=== PATIENT | female | born 1955 | race Caucasian/White ===

== ENCOUNTER 2025-06-01 12:09 | Inpatient (IN) | payer MEDICARE, MEDICAID ==
[~2025-06-01] VITALS: Ht 157.5 cm; Wt 48.9 kg
[~2025-06-01 12:09] MED LIST: ALBU18HF2 INH; FLUT1BLS4 INH; LEVO75TA7 PO
--- NOTE | 2025-06-01 12:38 | ELECTROCARDIOGRAPH REPORT ---
[facility] Test Date: 2025-06-01 Test Time: 12:16:41 Pat Name: CARMEL METZGER Department: EMERGENCY ROOM Room: ED 14 Gender: F General Technician: : 1955 Requested By: JOHNNIE SADLER Order Number: [id number] Reading MD: Dr. Johnnie Sadler Measurements Intervals [place] Rate: 98 P: 87 [place]: 124 QRS: 81 QRSD: 93 T: 6 QT: 353 QTc: 451 Interpretive Statements Sinus rhythm Borderline right axis deviation Borderline repolarization abnormality Electronically Signed On 06-01-2025 17:55:[address] Johnnie Sadler Please click the below link to view image of tracing.
--- NOTE | 2025-06-01 12:54 | RADIOLOGY REPORT ---
CHEST RADIOGRAPH Indication: CP Technique: Single frontal view of the chest was obtained Comparison: None FINDINGS: Lines and Tubes: None Lungs: No focal consolidation. Pleura: No effusion. No pneumothorax. Cardiomediastinal contours: Unremarkable Bones: No acute osseous abnormality. IMPRESSION: No acute cardiopulmonary disease.
[2025-06-01 13:48] LABS: MEAN PLATELET VOLUME 8.1 FL (7.4-10.4); RED CELL DISTRIBUTION WIDTH 14.3 % (11.5-14.5)
[2025-06-01 14:17] LABS: CREATININE 0.89 MG/DL (0.40-0.90); PRO BRAIN NATRIURETIC PEPTIDE 288 PG/ML (0-125); TOTAL CARBON DIOXIDE 29.9 MMOL/L (24-32); eCRCL 20 ML/MIN; eGFR 63 ML/MIN
--- NOTE | 2025-06-01 14:17 | Physician Documentation ---
History of Present Illness ~ Chief Complaint: Shortness of Breath Stated Complaint: CHEST AND ABD PAIN Time Seen by MD: 13:40 Mode of Arrival: POV HPI This 70-year-old female who has a complex abdominal surgery history presents today with increasing concerns of abdominal pain and chest wall pain. She was seen two days ago the [facility] where she had a CT performed along with laboratory values. The results ultimately indicated CT findings that were consistent with enteritis. The primarily concerned for this patient was a small-bowel obstruction which she was discovered to have three months ago. New line new line laboratory values were reassuring patient was mildly hyponatremic. The patient also had increased abdominal distention which is secondary to ascites. Does have a history of Crohn's. He was placed on ciprofloxacin primarily due to the suspected early development of infection. She presents today ongoing pain. Denies any dysfunction with her iliosostomy. Day of Onset: Jun 01, 2025 Medication Reconciliation Allergies: Coded Allergies: amoxicillin (Verified Allergy, Mild, Redness, 06/01/25) clavulanic acid (Verified Allergy, Mild, Redness, 06/01/25) latex (Verified Allergy, Unknown, HIVES, 06/01/25) Scheduled Fluticasone/Umeclidin/Vilanter (Trelegy Ellipta 100-62.5-25), 1 PUFFS INH DAILY, (Reported) Levothyroxine Sodium (Levothyroxine Sodium), 1 TAB PO DAILY, (Reported) Scheduled PRN Albuterol Sulfate (Ventolin Hfa), 2 PUFFS INH Q4HPRN PRN for wheezing Past Medical History Past Medical History: Bowel Obstruction, Hypothyroidism Past Surgical History: gastric bypass Patient History: Patient reports no known family medical history. Physical Exam Vital Signs: Temperature: 98.2, Source: Oral, Heart Rate: 99, Respiratory Rate: 17, BP: 126/57, Pulse Oximetry: 97, Weight: 22.270 Oxygen Flow Rate: 3.0 Progress Results/Orders Results/Orders Orders - HARSH RADFORD NP Hospitalist (06/01/25 ) Medications Received in ER Medications (Trade) Dose Ordered Sig/Abiel Route PRN Reason Start Time Stop Time Status Last Admin Dose Admin (morphine inj.) 1 mg Q4H PRN IV moderate pain (4-6) 06/01/25 16:10 06/01/25 16:37 1 MG Vital Signs 06/01/25 06/01/25 06/01/25 06/01/25 12:27 13:35 13:36 16:17 Temp 98.2 Pulse 99 90 Resp 17 20 B/P (MAP) 126/57 131/57 (81) Pulse Ox 99 97 98 O2 Delivery Nasal Cannula* O2 Flow Rate 3.0 2 2.0 FiO2 N/A 06/01/25 16:37 Resp 17 Laboratory Tests Test 06/01/25 13:33 06/01/25 14:19 White Blood Count 6.9 Red Blood Count 4.44 Hemoglobin 12.1 Hematocrit 37.0 Mean Corpuscular Volume 83.3 Mean Corpuscular Hemoglobin 27.2 Mean Corpuscular Hemoglobin Concent 32.7 L Red Cell Distribution Width 14.3 Platelet Count 288 Mean Platelet Volume 8.1 Neutrophils (%) (Auto) 74.8 Lymphocytes (%) (Auto) 17.3 L Monocytes (%) (Auto) 6.5 Eosinophils (%) (Auto) 0.9 Basophils (%) (Auto) 0.5 Neutrophils # (Auto) 5.1 Lymphocytes # (Auto) 1.2 Monocytes # (Auto) 0.4 Eosinophils # (Auto) 0.1 Basophils # (Auto) 0.0 CBC Comment Prothrombin Time 10.2 INR International Normalized Ratio 1.0 Activated Partial Thromboplast Time 27 Coagulation Comments Sodium Level 137 Potassium Level 3.9 Chloride Level 100 Carbon Dioxide Level 29.9 Anion Gap 7 L Blood Urea Nitrogen 13 Creatinine 0.89 Estimated GFR/1.73 m2 63 BUN/Creatinine Ratio 14.6 Glucose Level 83 Hemoglobin A1c 5.6 Calcium Level 8.5 Phosphorus Level 2.5 Magnesium Level 1.6 Total Bilirubin 0.5 Direct Bilirubin 0.1 Aspartate Amino Transf (AST/SGOT) 31 Alanine Aminotransferase (ALT/SGPT) 20 Alkaline Phosphatase 95 Troponin I High Sensitivity 5 5 Pro-B-Type Natriuretic Peptide 288 H Total Protein 7.3 Albumin 2.7 L Globulin 4.6 H Albumin/Globulin Ratio 0.6 L Thyroid Stimulating Hormone (TSH) 1.15 Chemistry Comments Troponin I High Sens Percent Delta 0 Troponin I Hi Sens Absolute Change 0 Medical Decision Making Findings 70-year-old female ultimately presents hemodynamically stable but has persistent abdominal pain and suspected costochondritis. She did not chart picker the ciprofloxacin that was prescribed to her because she was afraid of the side effects but states she needs something done. Reports pain in abdominal distention Differential Dx:Considerations: Include: anxiety, asthma, bronchitis, cardiogenic shock, CHF, COPD, dysrhythmia, hypertension, accelerated, hypertension, essential, hypertension, malignant, hyperventilation, hypon atremia, myocardial infarction, panic attack, pneumonia, pneumonitis, pneumothorax, PSVT, pulmonary embolism, respiratory distress, respiratory failure, sinusitis, upper resp. infection, other Departure Disposition: ADMITTED INPATIENT Impression: Primary Impression: Small bowel obstruction Additional Impression: Abdominal pain Condition: Stable Referrals: NO PRIMARY CARE PROVIDER (PCP) Education Educated: Patient Educated regarding: diagnosis Signature Scribe Signature: 5 Attestation: Scribed for Harsh Radford Automobile Mechanic Radiator by Harsh Cruz NP . 06/01/25 20:17 HARSH RADFORD NP Jun 01, 2025 14:17
[2025-06-01] MEDS ORDERED: mag hydrox/Alum hydrox/simeth 30ml oral suspension PO PRN (16:10)
[2025-06-01] MEDS ORDERED: potassium Cl 20 mEq SR tablet PO PRN (16:10)
[2025-06-01] MEDS ORDERED: magnesium hydroxide 30ml (MOM) UD suspension PO PRN (16:10)
[2025-06-01] MEDS ORDERED: potassium Cl 40MEQ/1/2NS 520ml 520 ML IV PRN (16:10)
[2025-06-01] MEDS ORDERED: magnesium sulf-water 2g/50mL 50 ML IV PRN (16:10)
[2025-06-01] MEDS ORDERED: magnesium sulf-water 4G/100mL 100 ML IV PRN (16:10)
[2025-06-01] MEDS: PERFLUTREN PROTEIN-A MICROSPHR (Optison) 0.22 MG/ML 3ML VIAL IV ONE (16:10)
[2025-06-01] MEDS ORDERED: magnesium Cl slow-release 64mg tablet PO PRN (16:10)
--- NOTE | 2025-06-01 16:37 | HISTORY AND PHYSICAL-Residence ---
History & Physical Providers to CC Resident Creating Document: JOSE BURR, RES ~ History of Present Illness Primary Medical Doctor: Everardo Hopson Reason for Admit\Complaint: Abdominal pain History of Present Illness A 70 years old female patient with past medical history of Crohn's disease status post total colectomy, hypothyroidism, COPD presented to ER with chief complaints of abdominal pain from past three months. She endorses that she has dull aching, cramping type of gradually increasing intermittent abdominal pain with severity of 7/10 present all over the abdomen aggravated with exertion. She denies nausea, vomiting, constipation, diarrhea, weight loss, fever, chills, shortness of breath, swelling of legs, dizziness, syncope, altered level of consciousness, arthralgias. She reports that she underwent CT scan with IV contrast at [facility] two days back. CT findings showed fluid-filled loops of nondilated small bowel which may be enteritis of infectious or inflammatory etiology, possible cirrhotic liver morphology and small volume ascites. She was advised to take ciprofloxacin by primary care provider Dr. Velazquez but she denies ciprofloxacin due to fear of infection may go worse. Allergies: Coded Allergies: amoxicillin (Verified Allergy, Mild, Redness, 06/01/25) clavulanic acid (Verified Allergy, Mild, Redness, 06/01/25) latex (Verified Allergy, Unknown, HIVES, 06/01/25) Home Medications Home Medications Active Ventolin Hfa (Albuterol Sulfate) 90 Mcg Hfa.aer.ad 2 Puffs INH Q4HPRN PRN 30 Days Reported Trelegy Ellipta 100-62.5-25 (Fluticasone/Umeclidin/Vilanter) 100-62.5 Blst.w.dev 1 Puffs INH DAILY Levothyroxine Sodium 75 Mcg Tablet 1 Tab PO DAILY Past Medical History Past Medical History Crohn's disease status post total colectomy, Hypothyroidism COPD Past Surgical History Surgical History Comment Total colectomy, ileostomy Family History Family History: Patient reports no known family medical history. Past Social History Social History Comment Ex-smoker, smoked pack of cigarettes for around 40 years, 40 pack years Drinks alcohol occasionally, 1 beer Denies any recreational drug use She is retired, lives with and granddaughter. ROS ROS Constitutional: No fever, chills, dizziness, weight gain or loss Eyes: No pain, erythema, discharge, blurring of vision ENT: No sore throat, epistaxis, tinnitus Cardiovascular:No chest pain, palpitations, syncope, lower extremity edema, paroxysmal nocturnal dyspnea Respiratory: No Shortness of breath and cough, No hemoptysis. Gastrointestinal: Reports Abdominal pain, no nausea and vomiting. Normal appetite. No constipation,diarrhea, hematemesis, melena or fresh blood Musculoskeletal:No chronmic edema. Integumentary: No change in skin, hair, nails. No swelling, bruising, abrasions Neurologic: No weakness,No headache, neck pain, numbness or tingling of the extremities, Psychiatric: No delusions, depression, loss of interest in normal activity or change in sleep pattern, hallucinations, suicidal ideations Endocrine: Reports fatigue, no weakness. polydipsia, polyuria, change in appetite, heat or cold intolerance, sweating, dry skin Hematological: No bleeding, petechiae, bruising Allergies: No asthma or urticaria Exam Vitals: Vital Signs Date Time Temp Pulse Resp B/P (MAP) Pulse Ox O2 Delivery O2 Flow Rate FiO2 06/01/25 16:17 90 20 131/57 (81) 98 2.0 06/01/25 13:35 Nasal Cannula* N/A 06/01/25 12:27 98.2 General: Awake , alert and oriented to time,place, person, cachectic, in mild distress HEENT: Atraumatic, normocephalic, PEERLA, anicteric sclera ; pink conjunctiva Neck: Trachea midline. Supple, normal range of motion, no JVD Cardiac: S1, S2 heard,Regular rate and rhythm, no murmurs heard. Chest and Respiratory: Equal breath sounds bilaterally, no tachypnea, wheezing and ronchi are present.Chest wall is symmetric and without deformity. Abdomen: Scar is present center of abdomen with Ileostomy bag in right lower quadrant, Abdomen symmetric, semi firm, mild abdominal distented, Diffuse moderate abdominal pain and tenderness, Garcia's sign negative. normal bowel sounds x4 quadrant, normoactive, no hepatosplenomegaly MSK: Range of motion of all extremities are normal. There is no joint pain or joint swelling or joint erythema. There is no muscle pain or tenderness or swelling. Extremities: warm, well-perfused, No cyanosis, clubbing or edema, 2+ pulses felt Neurological: Speech is clear, alert, and oriented x 4. No sensory or motor deficits. Cranial nerves II-XII intact. Skin: Warm and dry Psychiatry: Affect and mood are normal Diagnostic Data Last Recorded Lab Results: 06/01/25 1333 06/01/25 1333 Additional Plan Abdominal pain Possible small bowel obstruction versus enteritis Ordered CT of the abdomen and pelvis with overnight oral contrast CBC and LFTs are normal, vitals are stable Started on IV Protonix 40 mg daily Q 24 H IV Zofran 4 mg p.r.n. Pain management with IV morphine as needed Started on IV normal saline at the rate of 50 mL/hour Consider GI consult for EGD History of Crohn's disease Patient underwent total colectomy with ileostomy bag in right lower quadrant. Patient is not using any medication for Crohn's disease Hypothyroidism Follow up with TSH levels Continue on home medication levothyroxine 75 mg p.o. daily Obstructive sleep apnea Patient uses 2 L of oxygen@ nasal cannula sometimes outpatient management I spent a total of 17 minutes on reviewing various resuscitative measures/ ACP with the patient at the time of admission. The patient has decided on full code status DVT prophylaxis: SCDs GI prophylaxis: IV Protonix Diet: Regular diet Disposition: Patient is admitted for abdominal pain. We ordered CT scan with oral contrast. We will continue medical management. Jose Burr MD Internal Medicine resident, PGY 1 Date of Service: Jun 01, 2025 Billing Provider: RACHEL CROW DO Common Visit Codes: 72424-[id number] INP/OBS CARE (HIGH) Secondary Visit Codes: 83535-[id number] CARE PLAN 30 MINUTES JOSE BURR, RES Jun 01, 2025 16:37 RACHEL CROW DO Jun 01, 2025 19:03
[2025-06-01] MEDS ORDERED: pantoprazole 40MG/NS 100ML BAG 100 ML IV SCH (16:45)
[2025-06-01 17:10] LABS: APTT 27 SECONDS (22-32); INR 1.0 INR
[2025-06-01 17:24] LABS: PHOSPHORUS 2.5 MG/DL (2.3-4.5)
[2025-06-01 17:58] LABS: LEUKOCYTE ESTERASE ,URINE MODERATE (Neg); NITRITES, URINE NEGATIVE (Neg); OCCULT BLOOD,URINE SMALL (Neg)
[2025-06-01 18:02] LABS: UA COLLECTION TYPE VOIDED
[2025-06-01 18:04] LABS: MUCUS STRANDS FEW /LPF (Neg); SQUAMOUS EPITHELIAL CELL,UR MANY /LPF (FEW)
[2025-06-01] MEDS: normal saline 1000ml 1,000 ML IV SCH (18:55)
[2025-06-01 19:35] VITALS: BP 119/59; PULSE 98; RESP 18; TEMP 97.9; O2SAT 96
[2025-06-01] MEDS: K and/or MAG REPLACEMENT MC SCH (20:00)
[2025-06-01 20:30] VITALS: RESP 20; O2SAT 95
[2025-06-01] MEDS: diatr meglu/diatrizoate 30ml oral sol.-(3 dose) bottle PO SCH (21:43)
[2025-06-01] MEDS: docusate sod 100mg capsule PO SCH (21:45)
[2025-06-01 22:00] VITALS: BP 129/71; PULSE 94; RESP 20; TEMP 97.6; O2SAT 99
[2025-06-02 05:00] VITALS: BP 129/61; PULSE 98; RESP 20; TEMP 98.1; O2SAT 93
[2025-06-02 05:52] LABS: MEAN PLATELET VOLUME 8.4 FL (7.4-10.4); RED CELL DISTRIBUTION WIDTH 14.2 % (11.5-14.5)
[2025-06-02 06:20] LABS: CHOL/HDL RATIO 2.2 (0.00-4.99); CREATININE 0.86 MG/DL (0.40-0.90); LDL CHOLESTEROL 41 MG/DL (50-100); TOTAL CARBON DIOXIDE 25.8 MMOL/L (24-32); eCRCL 46 ML/MIN; eGFR 65 ML/MIN
[2025-06-02] MEDS: levoTHYROXINE 75mcg tablet PO SCH (07:55)
[2025-06-02 10:00] VITALS: BP 122/58; PULSE 103; RESP 20; TEMP 98.3; O2SAT 97
--- NOTE | 2025-06-02 10:58 | RADIOLOGY REPORT ---
CT CT ABDOMEN PELVIS W/ ORAL CONTRAST INDICATION: Abdominal pain with N/V, hx of total colectomy- Crohnes DX EXAM DATE: 06/02/2025 10:17 AM COMPARISON: CT CT ABDOMEN PELVIS W/ ORAL CONTRAST on DOS: 02/13/25, DI ABDOMEN,SINGLE VIEW(KUB) on DOS: 02/12/25, ROUTINE ABPEL WITH(ADULT) on DOS: 02/11/25 RADIATION DOSE: CTDIvol: 9 mGy, DLP: 393 mGy*cm PROCEDURE: Helical CT images were obtained of the abdomen and pelvis without IV contrast Sagittal and coronal reconstructions are provided. ORAL CONTRAST: Yes ADDITIONAL IMAGES / REFORMATS: None All CT scans at this medical facility are performed using dose modulation techniques as appropriate to a per formed exam including the following: Automated exposure control was utilized; adjustment of the MA an d/or KV according to patient size; and use of iterative reconstruction technique. FINDINGS: LUNG BASE: Mild emphysema and trace bilateral effusion. LIVER: Normal. GALLBLADDER AND BILIARY TREE: Janie clips. No intra- or extrahepatic biliary ductal dilation. PANCREAS: Normal. SPLEEN: Normal. BOWEL: Post surgical changes from total colectomy with similarly mildly dilated small bowel and a RLQ ileostomy. ADRENALS: Normal. KIDNEYS AND URETER: Small nonobstructive right kidney stone. BLADDER: Normal. REPRODUCTIVE ORGANS: Normal. LYMPH NODES:No lymphadenopathy. PERITONEUM: Mild ascites. VESSELS: Scattered atherosclerotic calcifications are noted. RETROPERITONEUM: Normal. ABDOMINAL WALL: Normal. BONES: Scattered osseous degenerative changes are noted. IMPRESSION: Post surgical changes from total colectomy with similarly mildly dilated small bowel and a RLQ ileost jacques. A partial mechanical bowel obstruction or ileus is a consideration. Mild ascites.
[2025-06-02] MEDS ORDERED: HYDROcodone/acetaminophen 10/325mg tab PO PRN (11:30)
[2025-06-02] MEDS: HYDROcodone/acetaminophen 5mg/325mg tablet PO PRN (11:35)
[2025-06-02] MEDS: ciprofloxacin lact 400MG/200ML 200 ML IV SCH (13:38)
[2025-06-02] MEDS: metroNIDAZOLE-Flagyl 500mg/NS 100 ML IV SCH (15:19)
--- NOTE | 2025-06-02 15:32 | CONSULTATION REPORT - RESIDENT ---
Consult Providers to CC Resident Creating Document: HOLA ELI RES History of Present Illness Reason for Admit\Complaint: Abdominal pain History of Present Illness A 70 years old female patient with past medical history of Crohn's disease status post total colectomy, hypothyroidism, COPD presented to ER with chief complaints of abdominal pain from past three months. She endorses that she has dull aching, cramping type of gradually increasing intermittent abdominal pain with severity of 7/10 present all over the abdomen aggravated with exertion. She states that the pain does not radiate. She denies constipation, diarrhea, hematochezia, melena, weight loss, fever, chills, shortness of breath, swelling of legs, dizziness, syncope, altered level of consciousness. She denied vomiting yesterday but she vomited today and NG tube was inserted. She reports that she underwent CT scan with IV contrast at [facility] two days back. CT findings showed fluid-filled loops of nondilated small bowel which may be enteritis of infectious or inflammatory etiology, possible cirrhotic liver morphology and small volume ascites. She was advised to take ciprofloxacin by primary care provider Dr. Velazquez but she denies ciprofloxacin due to fear of infection may go worse. Allergies: Coded Allergies: amoxicillin (Verified Allergy, Mild, Redness, 06/01/25) clavulanic acid (Verified Allergy, Mild, Redness, 06/01/25) latex (Verified Allergy, Unknown, HIVES, 06/01/25) Home Medications Home Medications Active Ventolin Hfa (Albuterol Sulfate) 90 Mcg Hfa.aer.ad 2 Puffs INH Q4HPRN PRN 30 Days Reported Trelegy Ellipta 100-62.5-25 (Fluticasone/Umeclidin/Vilanter) 100-62.5 Blst.w.dev 1 Puffs INH DAILY Levothyroxine Sodium 75 Mcg Tablet 1 Tab PO DAILY Past Medical History Past Medical History Crohn's disease status post total colectomy, Hypothyroidism COPD Past Surgical History Surgical History Comment Total colectomy, ileostomy Family History Family History: Patient reports no known family medical history. ROS ROS Constitutional: No fever, chills, dizziness, weight gain or loss Eyes: No pain, erythema, discharge, blurring of vision ENT: No sore throat, epistaxis, tinnitus Cardiovascular:No chest pain, palpitations, syncope, lower extremity edema, paroxysmal nocturnal dyspnea Respiratory: No Shortness of breath and cough, No hemoptysis. Gastrointestinal: Reports Abdominal pain, no nausea and vomiting. Normal appetite. No constipation,diarrhea, hematemesis, melena or fresh blood Musculoskeletal: No chronmic edema. Integumentary: No change in skin, hair, nails. No swelling, bruising, abrasions. Neurologic: No weakness,No headache, neck pain, numbness or tingling of the extremities, Psychiatric: No delusions, depression, loss of interest in normal activity or change in sleep pattern, hallucinations, suicidal ideations Endocrine: Reports fatigue, no weakness. polydipsia, polyuria, change in appetite, heat or cold intolerance, sweating, dry skin Hematological: No bleeding, petechiae, bruising Allergies: No asthma or urticaria Exam Vitals: Vital Signs Date Time Temp Pulse Resp B/P (MAP) Pulse Ox O2 Delivery O2 Flow Rate FiO2 06/02/25 13:50 16 06/02/25 10:00 98.3 103 122/58 (79) 97 06/02/25 08:00 Nasal Cannula 2.0 N/A General: Awake , alert and oriented to time,place, person, cachectic, in m oderate distress HEENT: Atraumatic, normocephalic, PEERLA, anicteric sclera ; pink conjunctiva Neck: Trachea midline. Supple, normal range of motion, no JVD Cardiac: S1, S2 heard,Regular rate and rhythm, no murmurs heard. Chest and Respiratory: Equal breath sounds bilaterally, no tachypnea, wheezing and ronchi are present.Chest wall is symmetric and without deformity. Abdomen: Scar is present center of abdomen with Ileostomy bag in right lower quadrant, Abdomen symmetric, firm, abdomen distended, Diffuse moderate abdominal pain and tenderness. Hypoactive bowel sounds. Garcia's sign negative. no hepatosplenomegaly MSK: Range of motion of all extremities are normal. There is no joint pain or joint swelling or joint erythema. There is no muscle pain or tenderness or swelling. Extremities: warm, well-perfused, No cyanosis, clubbing or edema Neurological: Speech is clear, alert, and oriented x 4. No sensory or motor deficits. Cranial nerves II-XII intact. Skin: Warm and dry Psychiatry: Affect and mood are normal Diagnostic Data Last Recorded Lab Results: 06/02/25 0437 06/02/25 0437 Diagnostic Data: Laboratory Tests Test 06/01/25 13:33 Prothrombin Time 10.2 SECONDS (9.0-12.0) INR International Normalized Ratio 1.0 INR Activated Partial Thromboplast Time 27 SECONDS (22-32) Coagulation Comments Additional Plan Abdominal pain Possible small bowel obstruction versus enteritis History of Crohn's disease Patient underwent total colectomy with ileostomy bag in right lower quadrant. Patient is not using any medication for Crohn's disease Abdomen CT-06/02/25 Post surgical changes from total colectomy with similarly mildly dilated small bowel and a RLQ ileostomy. A partial mechanical bowel obstruction or ileus is a consideration. Mild ascites. Plan: Pain management with IV morphine as needed Continue IV Protonix 40 mg daily Q 24 H IV Zofran 4 mg p.r.n. Continue IV normal saline at the rate of 50 mL/hour Hola Eli Internal Medicine Resident, PGY-1 Date of Service: Jun 02, 2025 Billing Provider: ROBBIN CLARKE MD,HOLA, RES Jun 02, 2025 15:32
[2025-06-02] MEDS ORDERED: iohexol 300mg/ml 100ml inj. ONE (17:16)
[2025-06-02] MEDS: diatr meglu/diatrizoate 30ml oral sol.-(3 dose) bottle PO SCH (17:46)
[2025-06-02 18:00] VITALS: BP 139/73; PULSE 101; RESP 18; TEMP 97.7; O2SAT 99
[2025-06-02] MEDS: ondansetron/PF 4mg/2ml inj IV PRN (18:48)
[2025-06-02] MEDS: LIDOcaine 2% Viscous 15ml cup MM ONE (19:39)
--- NOTE | 2025-06-02 19:40 | PROGRESS NOTE- Residence ---
Progress Note - Resident Providers to CC Resident Creating Document: JOSE BURR RES ~ Antibiotic Timeout Antibiotic Ordered?: Yes Subjective Patient was seen and examined at bedside. Patient complains of abdominal pain and distention, nausea and vomiting. Patient passed greenish yellow stools today. She denies constipation, diarrhea, chest pain, shortness of breath, palpitations, syncope. Objective Vital Signs Date Time Temp Pulse Resp B/P (MAP) Pulse Ox O2 Delivery O2 Flow Rate FiO2 06/02/25 13:50 16 06/02/25 10:00 98.3 103 122/58 (79) 97 06/02/25 08:00 Nasal Cannula 2.0 N/A Result Diagram: 06/02/2543606/02/25436 Awake , alert and oriented to time,place, person, cachectic, in mild distress HEENT: Atraumatic, normocephalic, PEERLA, anicteric sclera ; pink conjunctiva Neck: Trachea midline. Supple, normal range of motion, no JVD Cardiac: S1, S2 heard,Regular rate and rhythm, no murmurs heard. Chest and Respiratory: Equal breath sounds bilaterally, no tachypnea, wheezing and ronchi are present.Chest wall is symmetric and without deformity. Abdomen: Scar is present center of abdomen with Ileostomy bag in right lower quadrant, Abdomen is firm, moderate abdominal distented, Diffuse moderate abdominal tenderness and rigidity mainly in epigastric region,Hypoactive bowel sounds. Garcia's sign negative., no hepatosplenomegaly MSK: Range of motion of all extremities are normal. There is no joint pain or joint swelling or joint erythema. There is no muscle pain or tenderness or swelling. Extremities: warm, well-perfused, No cyanosis, clubbing or edema, 2+ pulses felt Neurological: Speech is clear, alert, and oriented x 4. No sensory or motor deficits. Cranial nerves II-XII intact. Skin: Warm and dry Psychiatry: Affect and mood are normal Coagulation Studies Laboratory Tests Test 06/01/25 13:33 Prothrombin Time 10.2 SECONDS (9.0-12.0) INR International Normalized Ratio 1.0 INR Activated Partial Thromboplast Time 27 SECONDS (22-32) Coagulation Comments Assessment Assessment A 70 years old female patient with past medical history of Crohn's disease status post total colectomy, hypothyroidism, COPD admitted for abdominal pain secondary to partial bowel obstruction vs enteritis. Plan Plan Abdominal pain Likely secondary to partial small bowel obstruction versus enteritis -CT of the abdomen showed partial mechanical bowel obstruction or ileus is a consideration and mild ascites. -CBC and LFTs are normal, vitals are stable -On IV Protonix 40 mg daily Q 24 H -IV Zofran 4 mg p.r.n. -Started on NPO -Pain management with IV Dilaudid 0.5 mg q.4h -On IV normal saline at the rate of 100 mL/hour -Strict input and output monitoring -Repeated CT abdomen as per Dr. Thomas's recommendation -Failed to pass of NG tube multiple times --Started on IV metronidazole 500 mg Q 8 H and ciprofloxacin 400 mg q.12h IV History of Crohn's disease Possible flare-up of Crohn's disease -Patient underwent total colectomy with ileostomy bag in right lower quadrant. -Patient is not using any medication for Crohn's disease -ESR and CRP are elevated -GI consulted for EGD and for medication. Appreciate recommendations. Urinary tract infection -Urine routines positive for esterase, WBC, bacteria -Ordered urine cultures -Started on IV ciprofloxacin 400 mg Q 12 H Hypothyroidism -TSh is in normal limits -Continue on home medication levothyroxine 75 mg p.o. daily Obstructive sleep apnea -Patient uses 2 L of oxygen@ nasal cannula sometimes -outpatient management Code status : full code DVT prophylaxis: SCDs GI prophylaxis: IV Protonix Diet: NPO Disposition: Patient is admitted for abdominal pain possibly secondary to partial small-bowel obstruction versus enteritis. Dr. Thomas was consulted and advised CT abdomen with IV contrast. NG tube placement pending. We will continue medical management. Jose Burr MD Internal Medicine resident, PGY 1 Date of Service: Jun 02, 2025 Billing Provider: MYAH MCKEON MD,JOSE DIEGO, RES Jun 02, 2025 19:40
--- NOTE | 2025-06-02 19:51 | RADIOLOGY REPORT ---
Exam: CT CT ABDOMEN PELVIS W/ IV CONTRAST History: pain Comparison Study: CT CT ABDOMEN PELVIS W/ ORAL CONTRAST on DOS: 06/02/25, CT CT ABDOMEN PELVIS W/ ORAL CONTRAST on DOS: 02/13/25, and 02/11/2025 DI ABDOMEN,SINGLE VIEW(KUB) on DOS: 02/12/25 TECHNIQUE: Multidetector CT of the abdomen and pelvis with IV contrast. Axial, coronal and sagittal m ultiplanar reformats were obtained from the axial data set by the technologist. Radiation Dose Information: CT Dose: CTDI volume is 9.34 mGy. Dose-length product is 442.02 mGy*cm FINDINGS: Small bilateral pleural effusions with bibasilar atelectasis. Partially visualized heart is unremark able. Lobulated contour of the liver. Otherwise, liver, spleen, pancreas and adrenal glands unremarkable. The gallbladder is not well-visualized. Punctate nonobstructing right renal calculus. Otherwise, Kidneys, ureters [id number]-oc-[id number] distend ed urinary bladder are unremarkable. Uterus is not well-visualized. Question hysterectomy. Small cys tic structures within the right posterior hemipelvis which represent ovarian cysts ; relatively uncha nged 02/11/2025 Significant esophageal wall thickening. Significant wall thickening of the distal stomach. The small- bowel loops are contrast filled and nondistended. Postsurgical changes of total colectomy with right lower abdominal quadrant ileostomy. There is contrast passage through the small bowel into the ileost jacques. Large volume ascites. No evidence of intraperitoneal free air. No evidence of aortic aneurysm or dissection. Mild atherosclerotic calcification of the aorta and monica ateral iliacs. Mildly prominent pelvic vasculatures. Retroperitoneal lymphadenopathy Mild pelvic and abdominal wall edema. Anterolisthesis of L5 on S1 with bilateral L5 pars defects. IMPRESSION: Large volume ascites ; relatively unchanged from prior imaging. Interval decrease in the distention of the small bowel loops with no significant distention noted on current image. Contrast passage into the ileostomy is noted. Significant wall thickening of the distal esophagus and distal stomach. Correlate for esophagitis a nd gastritis respectively. Retroperitoneal lymphadenopathy ; varicose veins prominence of the pelvic vasculatures. Small bilateral pleural effusions.
[2025-06-02 20:00] VITALS: RESP 18; O2SAT 95
--- NOTE | 2025-06-02 21:01 | CARDIOLOGY REPORT ---
APPROVED REPORT EXAM: Comprehensive 2D, Doppler, and color-flow Echocardiogram. Patient Location: 348 B Heart Rate: 80's bpm Rhythm: SINUS Indications CONGESTIVE HEART FAILURE PBNP [employer] Worker: NONE Previous echo: NONE 2D Dimensions RVDd 3.3 cm LVDd 4.0 cm LVOT Diameter 2.00 (1.8-2.4cm) M-Mode Dimensions Left Atrium(MM) 2.60 (2.5-4.0cm) Aortic Root 2.23 (2.2-3.7cm) Aortic Valve AoV Peak David. 131.0 cm/s AoV VTI 18.6 cm AO Peak GR. 6.9 mmHg AO Mean GR. 3 mmHg LVOT VTI 15.89 cm LVOT Peak David. 89.0 cm/s CHICO(VTI)/BSA 2.69 cm2/m2 CHICO (VTI) 2.69 cm2 Mitral Valve MV E Velocity 58.0 cm/s MV Peak Gr. 3 mmHg MV DECEL TIME 196 ms MV A Velocity 85.6 cm/s MV PHT 72 ms E/A Ratio 0.7 MVA (PHT) 3.06 cm2 MV VMax88.5 cm/s LEFT VENTRICLE Normal LV size and wall thickness. Overall systolic function is normal. Overall LVEF is about 60%. RIGHT VENTRICLE RV is mildly dilated with normal function. ATRIA The left atrium size is normal. AORTIC VALVE Trileaflet AV appears mildly sclerotic without stenosis. No insufficiency. MITRAL VALVE Mild MV annular calcification without stenosis. Mild regurgitation. TRICUSPID VALVE TV appears structurally normal with trace regurgitation. PULMONIC VALVE Pulmonic valve is not well visualized. GREAT VESSELS The aortic root is normal in size. PERICARDIUM Normal pericardium. No effusion. Other Information Study Quality: Adequate, but TDS plax/psax windows Conclusion Overall LVEF is about 60%. Normal LV size and wall thickness. Overall systolic function is normal. RV is mildly dilated with normal function. Trileaflet AV appears mildly sclerotic without stenosis. No insufficiency. Mild MV annular calcification without stenosis. Mild regurgitation. TV appears structurally normal with trace regurgitation. Normal pericardium. No effusion.
[2025-06-02 22:00] VITALS: BP 121/70; PULSE 72; RESP 16; TEMP 97.5; O2SAT 97
[2025-06-03] MEDS: HYDROmorphone inj. 0.5 MG/0.5 ML DISP.SYRIN IV PRN (04:36)
[2025-06-03 04:38] LABS: MEAN PLATELET VOLUME 7.8 FL (7.4-10.4); RED CELL DISTRIBUTION WIDTH 14.5 % (11.5-14.5)
[2025-06-03 04:51] LABS: CREATININE 0.70 MG/DL (0.40-0.90); TOTAL CARBON DIOXIDE 25.2 MMOL/L (24-32); eCRCL 57 ML/MIN; eGFR 82 ML/MIN
--- NOTE | 2025-06-03 05:13 | CONSULTATION ---
DATE OF CONSULTATION: 06/02/2025 DICTATING PHYSICIAN: Ab Dixon MD REASON FOR CONSULTATION: Abdominal pain. HISTORY OF PRESENT ILLNESS: The patient is 70 years old with a history of Crohn's disease status post subtotal colectomy with permanent ileostomy many years ago. She comes in because of increasing abdominal pain. The patient states she has been having these symptoms with abdominal pain and distention since January. She was diagnosed with an ileus earlier and hospitalized and subsequently was conservatively managed with NG suction and decompression. She continues to have similar problems. At the time she had an NG tube, she complained of retrosternal chest pain that subsided after removal of the NG tube. At this time, her main symptom is abdominal pain and distention. She has poor appetite. Upon arrival, she had a CT scan, which showed evidence of mildly dilated small bowel like previous report with right lower quadrant ileostomy, and an ileus or mechanical obstruction are the possibilities. She denies any heartburn or acid reflux. Her main complain is abdominal pain, which is generalized in the periumbilical area. Laboratory values were essentially unremarkable. PAST MEDICAL HISTORY: Positive for Crohn's disease status post total colectomy, hypothyroidism and COPD. FAMILY AND PERSONAL HISTORY: Noncontributory. REVIEW OF SYSTEMS: A 12-point review of system same as history of present illness. PHYSICAL EXAMINATION: GENERAL: She appears chronically ill, asthenic. VITAL SIGNS: Normal. HEENT: Head is atraumatic. NECK: Supple. HEART: Normal. LUNGS: Normal. ABDOMEN: Moderately distended, tympanitic. Bowel sounds are minimal. Ileostomy bag is empty. CENTRAL NERVOUS SYSTEM: Within normal limits. LABORATORY VALUES: Reviewed. CT scan was reviewed. IMPRESSION: History of Crohn's disease, status post total colectomy and she is admitted with what appears like ileus versus mechanical bowel obstruction. At this time, I would defer endoscopy. Apparently, the reason for GI consult was an EGD. I would think that performing an EGD and with air insufflation, the ileus could get worse. I would recommend conservative management, NG suction and if does not get better, would get a surgical consultation for treatment of possible mechanical bowel obstruction. I will follow the patient and if any other symptoms panned out, we will reconsider for an endoscopy. Ab Dixon MD TID: [id number] RECEIPT: [id number] [place]
[2025-06-03 06:00] VITALS: BP 113/58; PULSE 99; RESP 12; TEMP 98; O2SAT 96
[2025-06-03] MEDS: potassium Cl 20 mEq SR tablet PO PRN (09:46)
[2025-06-03 10:00] VITALS: BP 127/65; PULSE 96; RESP 19; TEMP 97.5; O2SAT 96
[2025-06-03] MEDS: potassium Cl 20mEq in D5-NS 1,000 ML IV SCH (10:30)
[2025-06-03] MEDS: Fluticasone/Umeclidin/Vilanter (Trelegy Ellipta 100-62.5-25) INHALER IH SCH (17:18)
[2025-06-03 18:00] VITALS: BP 110/51; PULSE 45; RESP 15; TEMP 97.8; O2SAT 100
[2025-06-03 20:00] VITALS: RESP 18; O2SAT 99
--- NOTE | 2025-06-03 20:13 | PROGRESS NOTE ---
Progress Note ID Providers to CC ~ Progress Note Progress Note: pt seen and examined-needs paracentesis BALAJI BANGURA MD Jun 03, 2025 20:13
--- NOTE | 2025-06-03 21:14 | PROGRESS NOTE- Residence ---
Progress Note - Resident Providers to CC Resident Creating Document: DANIELA RENNER, RES ~ Antibiotic Timeout Antibiotic Ordered?: Yes Subjective The patient was seen and examined at bedside today. He states that her abdominal pain and vomiting has gotten better with NG tube. Dr. Thomas repeated CT which showed lesser distention. Awaiting further recommendations. Objective Vital Signs Date Time Temp Pulse Resp B/P (MAP) Pulse Ox O2 Delivery O2 Flow Rate FiO2 06/03/25 10:00 97.5 96 19 127/65 (85) 96 Nasal Cannula 2.0 06/03/25 08:00 N/A Result Diagram: 06/03/2542106/03/25421 Elderly female, alert and oriented, not in acute distress Head: Normocephalic with an atraumatic Eyes: Pupils- 3mm, reacting to light, conjunctiva- anicteric Nose and throat: No polyps, septum- normal, no mucosal ulcers Neck: Supple, no lymphadenopathy, no carotid bruit Respiratory: No use of accessory muscles of respiration, Bilateral normal vesicular breath sounds heard. No wheeze, rhochi or creps Cardiac: S1-S2 heard, rhythm regular, no gallop/murmur Abdomen: Scar is present center of abdomen with Ileostomy bag in right lower quadrant, Abdomen symmetric, semi firm, mild abdominal distented, Diffuse moderate abdominal pain and tenderness, Garcia's sign negative. normal bowel sounds x4 quadrant, normoactive, no hepatosplenomegaly Extremities: no clubbing, no pedal edema, no deformities, peripheral pulses - 2+ Skin: warm and dry, no rash, no purpura Neuro: No focal deficit, gross cranial nerve exam - normal Coagulation Studies Laboratory Tests Test 06/01/25 13:33 Prothrombin Time 10.2 SECONDS (9.0-12.0) INR International Normalized Ratio 1.0 INR Activated Partial Thromboplast Time 27 SECONDS (22-32) Coagulation Comments Assessment Assessment A 70 years old female patient with past medical history of Crohn's disease status post total colectomy, hypothyroidism, COPD admitted for abdominal pain secondary to partial bowel obstruction vs enteritis. Plan Plan Abdominal pain Likely secondary to partial small bowel obstruction versus enteritis -CT of the abdomen showed partial mechanical bowel obstruction or ileus is a consideration and mild ascites. -repeat CT after NG placement showed lessened distention. -NPO -awaiting Dr. Thomas's recommendations -CBC and LFTs are normal, vitals are stable -On IV Protonix 40 mg daily Q 24 H -IV Zofran 4 mg p.r.n. -Pain management with IV Dilaudid 0.5 mg q.4h -On IV normal saline at the rate of 100 mL/hour -Strict input and output monitoring -Started on IV metronidazole 500 mg Q 8 H and ciprofloxacin 400 mg q.12h IV History of Crohn's disease S/p total colectomy Possible flare-up of Crohn's disease -Patient underwent total colectomy with ileostomy bag in right lower quadrant. -Patient is not using any medication for Crohn's disease -ESR and CRP are elevated -GI consulted for EGD and for medication. Appreciate recommendations. Urinary tract infection -Urine routines positive for esterase, WBC, bacteria -Ordered urine cultures -Started on IV ciprofloxacin 400 mg Q 12 H Hypothyroidism -TSh is in normal limits -Continue on home medication levothyroxine 75 mg p.o. daily Obstructive sleep apnea -Patient uses 2 L of oxygen@ nasal cannula sometimes -outpatient management Code status : full code DVT prophylaxis: SCDs GI prophylaxis: IV Protonix Diet: NPO Disposition: Continue NG. Awaiting Dr. Thomas's recommendations. Daniela Renner MD Internal Medicine Resident, PGY-2 Date of Service: Jun 03, 2025 Billing Provider: MYAH MCKEON MD,DANIELA AGOSTO, RES Jun 03, 2025 21:14
[2025-06-03 22:00] VITALS: BP 102/50; PULSE 100; RESP 12; TEMP 97.7; O2SAT 100
--- NOTE | 2025-06-03 23:12 | PROGRESS NOTE ---
DATE: 06/03/2025 DICTATING PHYSICIAN: Ab Dixon MD SUBJECTIVE: The patient is awake, alert. NG tube is in place. Somewhat uncomfortable because of NG tube. OBJECTIVE: VITAL SIGNS: Normal. NECK: Supple. The patient continues to have vomiting and the patient thinks that NG is not in place. Surgical evaluation pending. ABDOMEN: Mildly distended, nontender. No masses. Bowel sounds are sparse. IMPRESSION: Possible ileus. NG tube decompression in progress. We will await surgical evaluation to make further recommendations. Discussed with the patient's care nurse. Ab Dixon MD TID: [id number] RECEIPT: [id number] [place]
[2025-06-04] VITALS (10 sets, daily range): BP systolic 93–125; BP diastolic 42–60; PULSE 88–105; RESP 16–19; TEMP 97–98.8; O2SAT 96–100
[2025-06-04 04:55] LABS: MEAN PLATELET VOLUME 7.9 FL (7.4-10.4); RED CELL DISTRIBUTION WIDTH 14.1 % (11.5-14.5)
[2025-06-04 05:11] LABS: CREATININE 0.83 MG/DL (0.40-0.90); TOTAL CARBON DIOXIDE 26.9 MMOL/L (24-32); eCRCL 48 ML/MIN; eGFR 68 ML/MIN
--- NOTE | 2025-06-04 07:45 | CONSULTATION ---
DATE OF CONSULTATION: 06/03/2025 DICTATING PHYSICIAN: Bobby Thomas MD REASON FOR CONSULTATION: Abdominal discomfort. HISTORY OF PRESENT ILLNESS: The patient is a 70-year-old female with history of Crohn's disease. She was admitted with abdominal discomfort. CAT scan raised the question of a small-bowel obstruction. Surgical evaluation now requested. On further questioning, the patient complains of some mild abdominal discomfort. Pain is much improved from previous episodes. Pain has been present for approximately 3 months. She has a history of Crohn's and had a previous subtotal colectomy with permanent ileostomy. No history of blood per stoma. No complaints of significant weight loss. She has a history of malignancy she is aware of. The patient has had some nausea, vomiting. PAST MEDICAL HISTORY: Notable for Crohn's, hypothyroidism, COPD. PAST SURGICAL HISTORY: Abdominal colectomy with ileostomy. HOME MEDICATIONS: Include Ventolin, Trelegy, levothyroxine. ALLERGIES: AMPICILLIN, CLAVULANIC ACID, LATEX. SOCIAL HISTORY: No history of tobacco use. Does drink alcohol. She is retired. REVIEW OF SYSTEMS: See H and P. PHYSICAL EXAMINATION: GENERAL: Well-nourished female in no distress. VITAL SIGNS: Unremarkable. HEART: Regular rate and rhythm. LUNGS: Clear to auscultation. ABDOMEN: Somewhat distended. No signs of peritonitis. Has some mild tenderness. EXTREMITIES: Unremarkable. NEUROLOGIC: Nonfocal. LABORATORY DATA: Include WBC 6, hematocrit of 35. ____ left shift. Chemistries include CO2 of 25. LFTs essentially unremarkable. TSH 1.15. IMAGING STUDIES: Initial CAT scan revealed a fair amount of ascites. There were some bad loops in the small bowel. Stomach was essentially nondistended. presence of some small bowel, minimal aortic calcification. The liver is somewhat small. Repeat CT scan with IV contrast reveals no significant mesenteric stenosis, persistent ascites. Contrast is reversed in small bowel and is now in the ileostomy. Small bowel loop dilatation is improved. IMPRESSION: * Abdominal pain, question etiology. The patient has a large amount of acidic fluid. Denies history of significant liver disease, although she has some nodularity on her CT scan suggests underlying cirrhosis. No history of history per report and does not drink in excess. * History of hypothyroidism. * .. * History of Crohn's. * Chronic obstructive pulmonary disease. RECOMMENDATIONS: Paracentesis for diagnostic and therapeutic purposes. Bobby Thomas MD TID: [id number] RECEIPT: [id number] ELBA/CANDY/SHAWANDA
[2025-06-04] MEDS ORDERED: levoTHYROXINE 75mcg tablet PO SCH (08:00)
--- NOTE | 2025-06-04 10:22 | ELECTROCARDIOGRAPH REPORT ---
[facility] Test Date: 2025-06-04 Test Time: 10:20:36 Pat Name: CARMEL METZGER Department: [facility] 3N Patient ID: [facility]-[id number] Room: [place] [address] B Gender: F [employer] Ref[employer]: : 1955 Requested By: HE OWENS Order Number: [id number] Reading MD: Dr. MARIBEL Flores Measurements Intervals [place] Rate: 104 P: 46 [place]: 125 QRS: 31 QRSD: 90 T: -11 QT: 340 QTc: 448 Interpretive Statements Sinus tachycardia Atrial premature complexes Inferior infarct, age indeterminate Electronically Signed On 06-04-2025 16:54:[address] MARIBEL Flores Please click the below link to view image of tracing.
--- NOTE | 2025-06-04 11:18 | RADIOLOGY REPORT ---
Indication: CHECK PLACEMENT OF NG TUBE Technique: DI ABDOMEN,SINGLE VIEW(KUB)[id number] Comparison: None FINDINGS/IMPRESSION: The nasogastric tube projects towards stomach. Cardiac silhouette unremarkable. Bibasilar airspace opacities and small bilateral pleural effusions. Postsurgical changes of the mid to lower abdomen and left upper quadrant.
[2025-06-04] MEDS: metoclopramide 5 mg/ml inj IV PRN (11:27)
[2025-06-04 13:47] LABS: ALBUMIN,BODY FLUID 2.0 G/DL; GLUCOSE,BODY FLUID 130 MG/DL; LDH,BODY FLUID 544 U/L; TOTAL PROTEIN,BODY FLUID 4.7 G/DL
--- NOTE | 2025-06-04 13:47 | PROCEDURE NOTE- Residance ---
Procedure Note Providers to CC CC: PIPPA JIMENEZ MD ~ Description A time-out was performed. My hands were washed immediately prior to the procedure. I wore a surgical cap, mask with protective eyewear, sterile gown and sterile gloves throughout the procedure. The area was cleansed and draped in usual sterile fashion using chlorhexidine scrub. Anesthesia was achieved with 1% lidocaine. The rt side of the abdomen was prepped and draped in a sterile fashion using chlorhexidine scrub. 1% lidocaine was used to numb the skin, soft tissue and peritoneum. The paracentesis catheter was inserted and advanced with negative pressure until straw colored fluid was aspirated. Approximately 60 mL of ascitic fluid was collected and sent for laboratory analysis. The catheter was then connected to the vaccutainer and 2.4 liters of additional ascitic fluid were drained. The catheter was removed and no leaking was noted. A bandaid was placed over the puncture wound. The patient tolerated the procedure well without any immediate complications. Estimated blood loss was less than 5 ml. Date of Service: Jun 04, 2025 Billing Provider: PIPPA JIMENEZ MD, SIVA, RES Jun 04, 2025 13:47
[2025-06-04 13:58] LABS: BF RBC COUNT 1915 /CU MM; BF WBC COUNT 475 /CU MM (0-1000); BFAPPEAR HAZY; BFCOLOR YELLOW; BFSOURCE ASCITES FLD; BFVOLUME 11 ML; LYMPHOCYTES,BODY FLUID 54 %; NEUTROPHILS,BODY FLUID 14 %
[2025-06-04 13:59] LABS: MONOCYTES,BODY FLUID 32 %
[2025-06-04 14:01] LABS: BF UNCLASSIFIED CELLS MANY
--- NOTE | 2025-06-04 14:32 | CONSULTATION REPORT - RESIDENT ---
Consult Providers to CC Resident Creating Document: TOMMY SUNSHINE, RES CC: PIPPA JIMENEZ MD History of Present Illness Reason for Admit\Complaint: Abdominal pain History of Present Illness A 70-year-old female with PMH of Crohn's disease s/p total colectomy, hypothyroidism COPD presented to the ER in view of abdominal pain for the last three months. CT imaging with IV contrast was done at [facility] two days ago which revealed fluid filled loops of nondilated small bowel which was conservatively managed with NG tube. Patient's started to complain of retrosternal chest pain as soon as it NG tube was removed. Patient was found to have obstruction status post surgery. ICU was consulted in view of paracentesis per Dr. Thomas. Allergies: Coded Allergies: amoxicillin (Verified Allergy, Mild, Redness, 06/01/25) clavulanic acid (Verified Allergy, Mild, Redness, 06/01/25) latex (Verified Allergy, Unknown, HIVES, 06/01/25) Home Medications Home Medications Active Ventolin Hfa (Albuterol Sulfate) 90 Mcg Hfa.aer.ad 2 Puffs INH Q4HPRN PRN 30 Days Reported Trelegy Ellipta 100-62.5-25 (Fluticasone/Umeclidin/Vilanter) 100-62.5 Blst.w.dev 1 Puffs INH DAILY Levothyroxine Sodium 75 Mcg Tablet 1 Tab PO DAILY Past Medical History Past Medical History Crohn's stasis Hypothyroidism COPD Past Surgical History Surgical History Comment Colectomy Family History Family History: Patient reports no known family medical history. Exam Vitals: Vital Signs Date Time Temp Pulse Resp B/P (MAP) Pulse Ox O2 Delivery O2 Flow Rate FiO2 06/04/25 12:27 18 06/04/25 08:30 97 Nasal Cannula 2.0 N/A 06/04/25 06:00 97.9 98 102/60 (74) General: General: Alert, awake, oriented, not in acute distress HEENT: PERRLA, no icterus, pallor, lymphadenopathy, carotid bruit Respiratory system: Bilateral vesicular breath sounds heard, no adventitious breath sounds CVS: S1-S2 heard, no murmurs/rubs/gallop GI: Distended abdomen with ileostomy in the right side, Soft, nontender, no organomegaly, no guarding/rigidity, bowel sounds present Neuro: No focal neurological deficits present Extremities: No edema cyanosis clubbing/deformities Skin: Warm and dry Diagnostic Data Last Recorded Lab Results: 06/04/25 0433 06/04/25 0433 Diagnostic Data: Laboratory Tests Test 06/01/25 13:33 Prothrombin Time 10.2 SECONDS (9.0-12.0) INR International Normalized Ratio 1.0 INR Activated Partial Thromboplast Time 27 SECONDS (22-32) Coagulation Comments Additional Plan Ascites Paracentesis with 2400 mL of fluid taken out and sent for analysis Abdominal pain Likely 2/2 partial SBO versus enteritis History of Crohn's disease s/p total colectomy UTI Hypothyroidism EBONI Management per hospitalist Tommy Sunshine MD Internal Medicine, PGY 2 Date of Service: Jun 04, 2025 Billing Provider: PIPPA JIMENEZ MD, SIVA, RES Jun 04, 2025 14:32
--- NOTE | 2025-06-04 14:37 | PROGRESS NOTE ---
Progress Note ID Providers to CC ~ Progress Note Progress Note: pain improved post para/start BALAJI Samuels MD Jun 04, 2025 14:37
--- NOTE | 2025-06-04 15:05 | PROGRESS NOTE- Residence ---
Progress Note - Resident Providers to CC Resident Creating Document: HE BURR RES ~ Antibiotic Timeout Antibiotic Ordered?: Yes Subjective The patient was seen and examined at bedside today. Patient states that her abdominal pain improved after NG tube placement. She reports nausea. She denies vomiting, constipation, shortness of breath, dizziness. She denies any complaints or concerns at the moment. Objective Vital Signs Date Time Temp Pulse Resp B/P (MAP) Pulse Ox O2 Delivery O2 Flow Rate FiO2 06/04/25 12:46 105 16 104/42 (62) 97 Nasal Cannula 2.0 06/04/25 08:30 N/A 06/04/25 06:00 97.9 Result Diagram: 06/04/2543206/04/25 043 Awake , alert and oriented to time,place, person, cachectic, in mild distress HEENT: Atraumatic, normocephalic, PEERLA, anicteric sclera ; pink conjunctiva Neck: Trachea midline. Supple, normal range of motion, no JVD Cardiac: S1, S2 heard,Regular rate and rhythm, no murmurs heard. Chest and Respiratory: Equal breath sounds bilaterally, no tachypnea, wheezing and ronchi are present.Chest wall is symmetric and without deformity. Abdomen: Scar is present center of abdomen with Ileostomy bag in right lower quadrant, Abdomen is soft, moderate abdominal distented, no tenderness, No guarding or rigidity,Hypoactive bowel sounds. Garcia's sign negative., no hepatosplenomegaly MSK: Range of motion of all extremities are normal. There is no joint pain or joint swelling or joint erythema. There is no muscle pain or tenderness or swelling. Extremities: warm, well-perfused, No cyanosis, clubbing or edema, 2+ pulses felt Neurological: Speech is clear, alert, and oriented x 4. No sensory or motor deficits. Cranial nerves II-XII intact. Skin: Warm and dry Psychiatry: Affect and mood are normal Coagulation Studies Laboratory Tests Test 06/01/25 13:33 Prothrombin Time 10.2 SECONDS (9.0-12.0) INR International Normalized Ratio 1.0 INR Activated Partial Thromboplast Time 27 SECONDS (22-32) Coagulation Comments Assessment Assessment A 70 years old female patient with past medical history of Crohn's disease status post total colectomy, hypothyroidism, COPD admitted for abdominal pain secondary to partial bowel obstruction vs enteritis. CT showed large volume ascites. Planned for paracentesis as per Dr. Thomas's recommendation. Plan Plan Abdominal pain Likely secondary to partial small bowel obstruction versus enteritis -CT of the abdomen showed partial mechanical bowel obstruction or ileus is a consideration and mild ascites. -Repeated CT with IV contrast after NG placement showed the large volume ascites. -planned for paracentesis as per Dr. Thomas's recommendations -NPO -CBC and LFTs are normal, vitals are stable -On IV Protonix 40 mg daily Q 24 H -IV Zofran 4 mg p.r.n. -Pain management with IV Dilaudid 0.5 mg q.4h -On IV normal saline at the rate of 100 mL/hour -Strict input and output monitoring -Started on IV metronidazole 500 mg Q 8 H and ciprofloxacin 400 mg q.12h IV Possible ileus -CT of the abdomen showed partial mechanical bowel obstruction or ileus is a consideration -NPO -NG tube decompression as per Dr. Dixon recommendation Urinary tract infection -Urine routines positive for esterase, WBC, bacteria -follow up with urine cultures -On IV ciprofloxacin 400 mg Q 12 H History of Crohn's disease S/p total colectomy Possible flare-up of Crohn's disease -Patient underwent total colectomy with ileostomy bag in right lower quadrant. -Patient is not using any medication for Crohn's disease -counseled about medication compliance -Advised to follow-up with outpatient management Hypothyroidism -TSh is in normal limits -Continue on home medication levothyroxine 75 mg p.o. daily Obstructive sleep apnea -Patient uses 2 L of oxygen@ nasal cannula sometimes -outpatient management Code status : full code DVT prophylaxis: SCDs GI prophylaxis: IV Protonix Diet: NPO Disposition: Continue NG decompression. Plan for paracentesis as per Dr. Thomas's recommendation Harry Burr MD Internal Medicine Resident, PGY-1 Date of Service: Jun 04, 2025 Billing Provider: MYAH MCKEON MD,HE DIEGO, RES Jun 04, 2025 15:05
--- NOTE | 2025-06-04 15:10 | RADIOLOGY REPORT ---
PROCEDURE: ULTRASOUND GUIDED PARACENTESIS HISTORY: 70 Female requiring paracentesis. TECHNIQUE: The risks and benefits of the procedure including but not limited to bleeding, infection and injury t o abdominal organs were explained to the patient and written informed consent was obtained. Optimal site for puncture was determined using ultrasound and the area sterilized and draped. Using a 5 [employer] catheter, paracentesis was performed in the left lower abdomen. Approximately 2.4 l iters of straw colored fluid was removed. The patient tolerated the procedure well. There were no im mediate complications. IMPRESSION: Ultrasound-guided paracentesis with no immediate complications. Procedure by Dr. Brown
[2025-06-04] MEDS: metoclopramide 5 mg/ml inj IV SCH (20:28)
--- NOTE | 2025-06-04 21:08 | PROGRESS NOTE ---
DATE: 06/04/2025 DICTATING PHYSICIAN: Ab Dixon MD SUBJECTIVE: The patient is awake and alert. Reports abdominal pain to be reduced; however, uncomfortable to the NG tube. NG tube returns intermittently high. Apparently, after 30 minutes of clamping for medication administration, she had NG return of 100-150 mL of bilious fluid. However, radiographically bowel obstructions have been ruled out as apparently the contrast was seen in the ileostomy bag. Incidentally, she also has ascites and paracentesis if scheduled by Dr. Brown today. The CT scan also showed esophageal and gastric wall thickening that needs to be further evaluated with endoscopy. PHYSICAL EXAMINATION: GENERAL: On physical exam, she is awake, alert, friendly, somewhat uncomfortable because of NG tube. VITAL SIGNS: Normal. NECK: Supple. HEART AND LUNG: Normal. ABDOMEN: Less distended, less tympanitic. Bowel sounds are present. IMPRESSION: The patient with history of Crohn's, colitis, status post total colectomy many years ago, came in with what appear like a bowel obstruction versus ileus. Conservative management seems to have resolve the ileus as she has been passing the contrast through the ileostomy; however, there is high output with NG tube, the reason for which are unclear. We will follow up on the peritoneal fluid analysis especially we will need to rule out malignant ascites in view of the fact that she does not have any history of liver disease versus obvious liver disease. The radiographic finding of esophageal and gastric thickening have to be also followed up with an endoscopy. We will plan on endoscopy tomorrow if it is okayed by the following surgeon for temporarily to remove the NG tube and evaluate the stomach. We will await surgical follow up regarding that and schedule endoscopy tomorrow. We will discuss with the hospitalist team as well. Ab Dixon MD TID: [id number] RECEIPT: [id number] MERLE/ABIGAIL/SHAWANDA
[2025-06-05] VITALS (15 sets, daily range): BP systolic 93–132; BP diastolic 46–73; PULSE 57–109; RESP 15–24; TEMP 97.5–98.1; O2SAT 92–98
[2025-06-05] MEDS: Chloraseptic (Phenol) Spray 177ml MM PRN (03:15)
[2025-06-05 04:54] LABS: MEAN PLATELET VOLUME 7.8 FL (7.4-10.4); RED CELL DISTRIBUTION WIDTH 14.6 % (11.5-14.5)
[2025-06-05 05:17] LABS: CREATININE 0.89 MG/DL (0.40-0.90); TOTAL CARBON DIOXIDE 27.3 MMOL/L (24-32); eCRCL 45 ML/MIN; eGFR 63 ML/MIN
[2025-06-05] MEDS: normal saline 1000ml 1,000 ML IV SCH (07:50)
[2025-06-05] MEDS ORDERED: propofol inj 20 ML IV ONE (10:59)
--- NOTE | 2025-06-05 19:35 | PROGRESS NOTE- Residence ---
Progress Note - Resident Providers to CC Resident Creating Document: HOLA ELI RES ~ Antibiotic Timeout Antibiotic Ordered?: Yes Subjective The patient was seen and examined at bedside today. Patient states that her abdominal pain improved. She looks mildly distressed. Objective Vital Signs Date Time Temp Pulse Resp B/P (MAP) Pulse Ox O2 Delivery O2 Flow Rate FiO2 06/05/25 12:20 82 15 110/60 (77) 98 Nasal Cannula 3.0 06/05/25 11:48 97.7 06/05/25 08:00 N/A General: Awake , alert and oriented to time,place, person, cachectic, in mild distress HEENT: Atraumatic, normocephalic, PEERLA, anicteric sclera ; pink conjunctiva Neck: Trachea midline. Supple, normal range of motion, no JVD Cardiac: S1, S2 heard,Regular rate and rhythm, no murmurs heard. Chest and Respiratory: Equal breath sounds bilaterally, no tachypnea, wheezing and ronchi are present.Chest wall is symmetric and without deformity. Abdomen: Scar is present center of abdomen with Ileostomy bag in right lower quadrant, Abdomen is soft, moderate abdominal distented, no tenderness, No guarding or rigidity,Hypoactive bowel sounds. Garcia's sign negative., no hepatosplenomegaly MSK: Range of motion of all extremities are normal. There is no joint pain or joint swelling or joint erythema. There is no muscle pain or tenderness or swelling. Extremities: warm, well-perfused, No cyanosis, clubbing or edema, 2+ pulses felt Neurological: Speech is clear, alert, and oriented x 4. No sensory or motor deficits. Cranial nerves II-XII intact. Skin: Warm and dry Psychiatry: Affect and mood are normal Result Diagram: 06/05/25 0428 06/05/25 0428 Coagulation Studies Laboratory Tests Test 06/01/25 13:33 Prothrombin Time 10.2 SECONDS (9.0-12.0) INR International Normalized Ratio 1.0 INR Activated Partial Thromboplast Time 27 SECONDS (22-32) Coagulation Comments Assessment Assessment Abdominal pain 2/2 Acute gastritis, most probably ileus which seems to be resolved CT of the abdomen showed partial mechanical bowel obstruction or ileus is a consideration and mild ascites. Conservative management seems to have resolved the ileus as she has been passing the contrast through the ileostomy. EGD- -LA Grade B reflux esophagitis with no bleeding. -Small hiatal hernia. -Congested, erythematous, eroded and petechial mucosa in the gastric body and antrum. Biopsied. -Normal duodenal bulb and second portion of the duodenum. She does not have any liver disease and her liver enzymes are normal. Paracentesis was done and 2.4 litres of straw coloured fluid was removed. We will await Peritoneal fluid analysis. Plan Plan Continue management as per primary team We will await peritoneal fluid analysis. Hola Eli Internal Medicine Resident, PGY-1 Date of Service: Jun 05, 2025 Billing Provider: ROBBIN CLARKE MD,HOLA, RES Jun 05, 2025 19:35
--- NOTE | 2025-06-05 20:43 | PROGRESS NOTE ---
Progress Note ID Providers to CC ~ Progress Note Progress Note: min pain/start clears BALAJI BANGURA MD Jun 05, 2025 20:43
--- NOTE | 2025-06-05 21:02 | PROGRESS NOTE- Residence ---
Progress Note - Resident Providers to CC Resident Creating Document: HE BURR, GABRIELLA ~ Antibiotic Timeout Antibiotic Ordered?: Yes Subjective The patient was seen and examined at bedside today. Patient states that her abdominal pain improved. She looks mildly distressed. Objective Vital Signs Date Time Temp Pulse Resp B/P (MAP) Pulse Ox O2 Delivery O2 Flow Rate FiO2 06/05/25 20:22 104 16 94 Nasal Cannula* 1 24 06/05/25 12:20 110/60 (77) 06/05/25 11:48 97.7 Result Diagram: 06/05/2542706/05/25427 Awake , alert and oriented to time,place, person, cachectic, in mild distress HEENT: Atraumatic, normocephalic, PEERLA, anicteric sclera ; pink conjunctiva Neck: Trachea midline. Supple, normal range of motion, no JVD Cardiac: S1, S2 heard,Regular rate and rhythm, no murmurs heard. Chest and Respiratory: Equal breath sounds bilaterally, no tachypnea, wheezing and ronchi are present.Chest wall is symmetric and without deformity. Abdomen: Scar is present center of abdomen with Ileostomy bag in right lower quadrant, Abdomen is soft, moderate abdominal distented, no tenderness, No guarding or rigidity,Hypoactive bowel sounds. Garcia's sign negative., no hepatosplenomegaly MSK: Range of motion of all extremities are normal. There is no joint pain or joint swelling or joint erythema. There is no muscle pain or tenderness or swelling. Extremities: warm, well-perfused, No cyanosis, clubbing or edema, 2+ pulses felt Neurological: Speech is clear, alert, and oriented x 4. No sensory or motor deficits. Cranial nerves II-XII intact. Skin: Warm and dry Psychiatry: Affect and mood are normal Coagulation Studies Laboratory Tests Test 06/01/25 13:33 Prothrombin Time 10.2 SECONDS (9.0-12.0) INR International Normalized Ratio 1.0 INR Activated Partial Thromboplast Time 27 SECONDS (22-32) Coagulation Comments Assessment Assessment A 70 year old female was admitted for abdominal pain secondary to possible ileus. Plan Plan Abdominal pain most probably secondary to ileus, resolved -CT of the abdomen showed partial mechanical bowel obstruction or ileus is a consideration and mild ascites. Conservative management seems to have resolved the ileus as she has been passing the contrast through the ileostomy as per Dr. Porter -Repeated CT with IV contrast after NG placement showed the large volume ascites. - ascitic fluid analysis showed high-protein count and SAAG - 0.1 -NG TUBE was removed and started on clear liquid diet as per Dr. Thomas's recommendations -On IV Protonix 40 mg daily Q 24 H -IV metoclopramide 5 mg p.r.n. -Pain management with IV Dilaudid 0.5 mg q.4h -On IV metronidazole 500 mg Q 8 H -On IV ciprofloxacin 400 mg q.12h Acute gastritis -EGD showed LA Grade B reflux esophagitis with no bleeding.Small hiatal hernia. Congested, erythematous, eroded and petechial mucosa in the gastric body and antrum. Biopsied. -On IV Protonix 40 mg daily Q 24 H -Management as per Dr. Porter recommended Urinary tract infection -Urine routines positive for esterase, WBC, bacteria -follow up with urine cultures -On IV ciprofloxacin 400 mg Q 12 H History of Crohn's disease S/p total colectomy Possible flare-up of Crohn's disease -Patient underwent total colectomy with ileostomy bag in right lower quadrant. -Patient is not using any medication for Crohn's disease -counseled about medication compliance -Advised to follow-up with outpatient management Hypothyroidism -TSh is in normal limits -Continue on home medication levothyroxine 75 mg p.o. daily Obstructive sleep apnea -Patient uses 2 L of oxygen@ nasal cannula sometimes -outpatient management Code status : full code DVT prophylaxis: SCDs GI prophylaxis: IV Protonix Diet: NPO Disposition: Patient was admitted with abdominal pain secondary to possible ileus. NG tube was removed and started on clear liquid diet. We will continue medical management. Harry Burr MD Internal Medicine Resident, PGY-1 Date of Service: Jun 05, 2025 Billing Provider: MYAH MCKEON MD,HE DIEGO, RES Jun 05, 2025 21:02
[2025-06-06 04:47] LABS: MEAN PLATELET VOLUME 7.8 FL (7.4-10.4); RED CELL DISTRIBUTION WIDTH 14.7 % (11.5-14.5)
[2025-06-06 05:01] LABS: CREATININE 0.84 MG/DL (0.40-0.90); TOTAL CARBON DIOXIDE 26.3 MMOL/L (24-32); eCRCL 47 ML/MIN; eGFR 67 ML/MIN
[2025-06-06 06:00] VITALS: BP 134/58; PULSE 98; RESP 24; TEMP 98; O2SAT 95
[2025-06-06 08:24] VITALS: PULSE 85; RESP 16; O2SAT 98
[2025-06-06 10:00] VITALS: BP 115/60; PULSE 97; RESP 20; TEMP 98.2; O2SAT 97
[2025-06-06] MEDS: Fluticasone/Umeclidin/Vilanter (Trelegy Ellipta 100-62.5-25) INHALER IH SCH (15:02)
--- NOTE | 2025-06-06 15:38 | PROGRESS NOTE ---
Progress Note ID Providers to CC ~ Progress Note Progress Note: COMPLAINS OF PAIN/VSS/ABD-MILD DISTENTION/LABS NOTED A/P 1. RECURRENT PAIN-? RECURRENT ASCITES/REPEAT CT BALAJI BANGURA MD Jun 06, 2025 15:38
--- NOTE | 2025-06-06 15:57 | PATHOLOGY REPORT ---
[facility] [address] [place] [address] NON-EDUCATIONAL ADVISER CYTOLOGY REPORT CaseNumber: [id number] Surgeon:Alpesh Goldsmith M.D. CLINICAL INFORMATION CLINICAL INFORMATION: Determine malignancy. 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 The express ion of NOHEMI-3 and E-cadherin, in particular, favors a primary ovarian serous adenocarcinoma. This case has been reviewed by Dr. Gomez, who agrees with this diagnosis. MICROSCOPIC DESCRIPTION MICROSCOPIC DESCRIPTION: Reviewed is a Diff-Quik smear, and a cytospin slide, and a single H&E-staine d slide. The specimen consists of some peripheral blood along with proteinaceous and some fibrinous- type material. There are numerous clusters of atypical cells with moderately enlarged and pleomorphi c nuclei. The nuclear chromatin is finely granular. The nucleoli are mildly to moderately enlarged and are occasionally multiple. The surrounding cytoplasm is present in moderate to fairly abundant a celine and is often vacuolated. Immunohistochemistry is as follows: AE1/3 .... Positive CK7 .... Positive CK20 .... Negative MOC-31 .... Positive TTF-1 .... Negative CDX-2 .... Negative SATB2 .... Negative PAX-8 .... Negative GCDFP-15 .... Negative Mammaglobin .... Negative NOHEMI-3 .... Scattered positivity E-cadherin .... Positive CD68 .... Negative; macrophages positive Calretinin .... Negative p40 .... Negative ER .... Positive (60%) GROSS DESCRIPTION GROSS DESCRIPTION: Received labeled with the patient's name, number, and "peritoneal fluid" is 7.5 mL of unfixed clear, yellow, watery fluid. Specific gravity is 1.030. One smear for Diff-Quik, one june ble cytospin slide, and one cell block are prepared. The cell block is submitted as A1. The time at [facility] the specimen was removed was 1240. The time at which the specimen was placed in formalin was 151 0. ([facility]) Electronically signed by: Anshu Quevedo M.D. 06/06/2025 3:22:00 PM
--- NOTE | 2025-06-06 16:13 | PROGRESS NOTE- Residence ---
Progress Note - Resident Providers to CC Resident Creating Document: DANIELA RENNER, RES ~ Antibiotic Timeout Antibiotic Ordered?: Yes Subjective The patient was seen and examined at bedside today. Her NG tube was removed yesterday as her symptoms got better. Endoscopy was done yesterday by Dr. Warner. She again got her symptoms of bloating and distension back today. Objective Vital Signs Date Time Temp Pulse Resp B/P (MAP) Pulse Ox O2 Delivery O2 Flow Rate FiO2 06/06/25 10:00 98.2 97 20 115/60 (78) 97 Nasal Cannula 1.0 06/06/25 08:24 28 Result Diagram: 06/06/2540906/06/25409 Elderly female, alert and oriented, not in acute distress Head: Normocephalic with an atraumatic Eyes: Pupils- 3mm, reacting to light, conjunctiva- anicteric Nose and throat: No polyps, septum- normal, no mucosal ulcers Neck: Supple, no lymphadenopathy, no carotid bruit Respiratory: No use of accessory muscles of respiration, Bilateral normal vesicular breath sounds heard. No wheeze, rhochi or creps Cardiac: S1-S2 heard, rhythm regular, no gallop/murmur Abdomen: Scar is present center of abdomen with Ileostomy bag in right lower quadrant, Abdomen symmetric, abdomen is distented, Diffuse moderate abdominal tenderness, Garcia's sign negative. normal bowel sounds x4 quadrant, normoactive, no hepatosplenomegaly Extremities: no clubbing, no pedal edema, no deformities, peripheral pulses - 2+ Skin: warm and dry, no rash, no purpura Neuro: No focal deficit, gross cranial nerve exam - normal Coagulation Studies Laboratory Tests Test 06/01/25 13:33 Prothrombin Time 10.2 SECONDS (9.0-12.0) INR International Normalized Ratio 1.0 INR Activated Partial Thromboplast Time 27 SECONDS (22-32) Coagulation Comments Assessment Assessment A 70 year old female was admitted for abdominal pain secondary to possible ileus. Plan Plan Abdominal pain Partial mechanical small bowel obstruction Ileus Possible underlying malignancy -patient underwent upper GI endoscopy which showed LA grade B reflux esophagitis with no bleeding. Small hiatal hernia. Congested, erythematous, eroded petechial mucosa in the gastric body and antrum. -NG tube removed yesterday. Patient's abdomen has been distended and bloated again. -Dr. March is repeating CT abdomen and pelvis today. Possible NG placement again. -CT of the abdomen showed partial mechanical bowel obstruction or ileus is a consideration and mild ascites. -ascitic fluid analysis showed high-protein count and SAAG - 0.1. -On IV Protonix 40 mg daily Q 24 H -IV metoclopramide 5 mg p.r.n. -Pain management with IV Dilaudid 0.5 mg q.4h -On IV metronidazole 500 mg Q 8 H -On IV ciprofloxacin 400 mg q.12h Acute esophagitis and gastritis -EGD showed LA Grade B reflux esophagitis with no bleeding.Small hiatal hernia. Congested, erythematous, eroded and petechial mucosa in the gastric body and antrum. Biopsied. -On IV Protonix 40 mg daily Q 24 H -Management as per Dr. Porter Urinary tract infection -Urine routines positive for esterase, WBC, bacteria -follow up with urine cultures -On IV ciprofloxacin 400 mg Q 12 H History of Crohn's disease S/p total colectomy Possible flare-up of Crohn's disease -Patient underwent total colectomy with ileostomy bag in right lower quadrant. -Patient is not using any medication for Crohn's disease -Advised to follow-up with outpatient management Hypothyroidism -TSH is in normal limits -Continue on home medication levothyroxine 75 mg p.o. daily Obstructive sleep apnea -Patient uses 2 L of oxygen@ nasal cannula sometimes -outpatient management Code status : Full code DVT prophylaxis: SCDs GI prophylaxis: IV Protonix Diet: NPO Disposition: Awaiting Dr. March's recommendations. Daniela Renner MD Internal Medicine Resident, PGY-2 Date of Service: Jun 06, 2025 Billing Provider: MYAH MCKEON MD,DANIELA AGOSTO, RES Jun 06, 2025 16:13
--- NOTE | 2025-06-06 17:48 | PATHOLOGY REPORT ---
[facility] [address] [place] [address] SURGICAL PATHOLOGY REPORT CaseNumber: [id number] Surgeon:Ab Dixon M.D. CLINICAL INFORMATION CLINICAL INFORMATION: Heme positive stool, abnormal CT of the GI tract. DIAGNOSIS DIAGNOSIS: STOMACH, ANTRUM; BIOPSY - BENIGN ANTRAL-TYPE GASTRIC MUCOSA. - NEGATIVE FOR INTESTINAL METAPLASIA. - NEGATIVE FOR H. PYLORI (CONFIRMED BY IMMUNOSTAIN). MICROSCOPIC DESCRIPTION MICROSCOPIC DESCRIPTION: A single H&E stained slide showing multiple levels of gastric mostly antral- type mucosa is reviewed. There is no significant increase in acute or chronic inflammation. The gland s are appropriately spaced; There is no evidence of fibrosis. There is no evidence of dysplasia, inte stinal metaplasia, or Helicobacter pylori. H. pylori IHC stain is performed on the specimen. There are no H. pylori organisms identified on the slide. GROSS DESCRIPTION GROSS DESCRIPTION: Received in a container of formalin labeled with the patient's name, number, and " antrum BX" is a 0.3 cm piece of knight tissue. The specimen is entirely submitted as A1. The time at [facility] the specimen was removed was 1131. The time at which the specimen was placed in formalin was 1131. Electronically signed by: Brandon Gomez, 06/06/2025 5:15:00 PM
[2025-06-06 18:00] VITALS: BP 104/55; PULSE 92; RESP 18; TEMP 98.1; O2SAT 98
[2025-06-06] MEDS: FAT EMUL/SOY/MCT/OLIV/FISH OIL (SMOF) 100 ML IV SCH (19:51)
[2025-06-06] MEDS: diatr meglu/diatrizoate 30ml oral sol.-(3 dose) bottle PO SCH (21:03)
[2025-06-06 22:00] VITALS: BP 140/69; PULSE 94; RESP 18; TEMP 98.6; O2SAT 96
[2025-06-06] MEDS: ondansetron/PF 4mg/2ml inj IV PRN (23:03)
[2025-06-06] MEDS: MVI, adult No.4 with vit. K 10 ML in dextrose 5% water 500ml 500 ML IV SCH (23:20)
[2025-06-07] VITALS (8 sets, daily range): BP systolic 102–149; BP diastolic 61–75; PULSE 94–107; RESP 16–28; TEMP 98.6–98.9; O2SAT 91–97
[2025-06-07 06:59] LABS: CREATININE 0.81 MG/DL (0.40-0.90); PHOSPHORUS 2.6 MG/DL (2.3-4.5); TOTAL CARBON DIOXIDE 22.2 MMOL/L (24-32); eCRCL 49 ML/MIN; eGFR 70 ML/MIN
--- NOTE | 2025-06-07 09:52 | RADIOLOGY REPORT ---
Exam: CT CT ABDOMEN PELVIS History: Abdominal distention Comparison Study: CT CT ABDOMEN PELVIS W/ IV CONTRAST on DOS: 06/02/25, CT CT ABDOMEN PELVIS W/ ORAL C ONTRAST on DOS: 06/02/25, CT CT ABDOMEN PELVIS W/ ORAL CONTRAST on DOS: 02/13/25, ROUTINE ABPEL WITH(YUE LT) on DOS: 02/11/25 Technique: Multidetector spiral CT of the abdomen was performed from lung bases to pubic symphysis. Imaging was performed without IV contrast. Axial, coronal and sagittal multiplanar reformats were ob tained from the axial data set by the technologist. Radiation Dose : 1. Abdomen/Pelvis: CTDIvol 13 mGy, DLP 548 mGy*cm. Findings: Evaluation of solid organs is limited due to lack of intravenous contrast use. Lung Bases: Moderate bilateral pleural effusions. Liver: Cirrhotic liver. Gallbladder and Biliary Tree: Unremarkable Spleen: Unremarkable Pancreas: The pancreas is grossly normal in appearance. Adrenal Glands: Unremarkable Kidneys: Kidneys are grossly normal without calculi or hydronephrosis. Bladder: Grossly unremarkable for degree of distention. Bowel: The stomach is grossly normal in appearance. Multiple abnormally dilated loops of small bowel with probable transition point in the lower midline abdomen, compatible with small-bowel obstruction. The appendix is not visualized; however, no secondary findings of acute appendicitis identified. Ascites: Moderate abdominopelvic ascites. Lymphadenopathy: No mesenteric, retroperitoneal or periportal lymphadenopathy. Abdominal Wall and Mesentery: Ostomy is seen in the right lower quadrant. Vasculature: The visualized abdominal aorta is normal in size and caliber. Evaluation of abdominal a nd pelvic vessels is limited due to lack of intravenous contrast. Pelvic Organs: Unremarkable Musculoskeletal: 1 cm anterolisthesis of L5 on S1 secondary to spondylolysis. IMPRESSION: 1. Small-bowel obstruction with probable transition point in the lower midline abdomen. 2. Moderate abdominopelvic ascites 3. Cirrhotic liver. 4. Moderate bilateral pleural effusions. 5. 1 cm anterolisthesis of L5 on S1 secondary to spondylolysis. Radiation optimization: All CT scans at this facility use at least one of these dose optimization ivy hniques: automated exposure control mA and/or kV adjustment per patient size (includes targeted exam s where dose is matched to clinical indication) or iterative reconstruction.
--- NOTE | 2025-06-07 10:20 | PROGRESS NOTE ---
DATE: 06/07/2025 DICTATING PHYSICIAN: Ab Dixon MD SUBJECTIVE: The patient still somewhat uncomfortable with abdominal pain and some distention. PHYSICAL EXAMINATION: VITAL SIGNS: Otherwise normal. HEART: Normal. LUNGS: Normal. ABDOMEN: Distended. Bowel sounds are present. Peritoneal fluid analysis is positive for adenocarcinoma of Mullerian origin. Very likely this is a case of ovarian cancer with malignant ascites secondary to ovarian cancer. This was a preperitoneal tap suspicion. At this point in time, the patient will need consultation with oncology, gynecologic-oncology for further treatment. Discussed with the residents. Ab Dixon MD TID: [id number] RECEIPT: [id number] MERLE/HU/SHAWANDA
[2025-06-07] MEDS ORDERED: sodium phosphate inj. 30 MMOL in dextrose 5%-water 250 ML IV PRN (12:25)
[2025-06-07] MEDS ORDERED: sodium phosphate inj. 15 MMOL in dextrose 5%-water 250 ML IV PRN (12:25)
[2025-06-07] MEDS ORDERED: magnesium sulf-water 2g/50mL 50 ML IV PRN (12:40)
[2025-06-07] MEDS ORDERED: potassium Cl 20 mEq SR tablet PO PRN (12:40)
[2025-06-07] MEDS ORDERED: magnesium Cl slow-release 64mg tablet PO PRN (12:40)
[2025-06-07] MEDS: magnesium sulf-water 4G/100mL 100 ML IV PRN (13:35)
--- NOTE | 2025-06-07 13:58 | PROGRESS NOTE- Residence ---
Progress Note - Resident Providers to CC Resident Creating Document: JOSE BURR, GABRIELLA ~ Antibiotic Timeout Antibiotic Ordered?: Yes Subjective The patient was seen and examined at bedside today. Patient again developed abdominal distention and nausea. She has been passing liquid stools. Patient denies any complaints or concerns at the moment. Objective Vital Signs Date Time Temp Pulse Resp B/P (MAP) Pulse Ox O2 Delivery O2 Flow Rate FiO2 06/07/25 08:41 95 16 Nasal Cannula 1.0 06/07/25 08:37 94 24 06/07/25 06:00 98.9 149/75 (99) Result Diagram: 06/06/25 0410 06/07/25 0539 Awake , alert and oriented to time,place, person, cachectic, in mild distress HEENT: Atraumatic, normocephalic, PEERLA, anicteric sclera ; pink conjunctiva Neck: Trachea midline. Supple, normal range of motion, no JVD Cardiac: S1, S2 heard,Regular rate and rhythm, no murmurs heard. Chest and Respiratory: Equal breath sounds bilaterally, no tachypnea, wheezing and ronchi are present.Chest wall is symmetric and without deformity. Abdomen: Scar is present center of abdomen with Ileostomy bag in right lower quadrant, Abdomen is soft, moderate distented abdomen , no tenderness, No guarding or rigidity, bowel sounds heard.. Garcia's sign negative., no hepatosplenomegaly MSK: Range of motion of all extremities are normal. There is no joint pain or joint swelling or joint erythema. There is no muscle pain or tenderness or swelling. Extremities: warm, well-perfused, No cyanosis, clubbing or edema, 2+ pulses felt Neurological: Speech is clear, alert, and oriented x 4. No sensory or motor deficits. Cranial nerves II-XII intact. 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 Moderate abdominopelvic ascites . -Ascitic fluid analysis showed high-protein count and SAAG - 0.1. -Peritoneal fluid analysis is positive for adenocarcinoma of Mullerian origin. -On IV Protonix 40 mg daily Q 24 H -IV metoclopramide 5 mg p.r.n. -Pain management with IV Dilaudid 0.5 mg q.4h -On IV ciprofloxacin 400 mg q.12h for 7 days -Treated with IV metronidazole 500 mg for 5 days -patient will need to follow up with outpatient oncologist and Stave Cutting Supervisor inview of Adeno carcinoma. We are advising to consult oncologist and Stave Cutting Supervisor. - continue treatment as per Dr. Thomas's recommendation Acute esophagitis and gastritis -EGD showed LA Grade B reflux esophagitis with no bleeding.Small hiatal hernia. Congested, erythematous, eroded and petechial mucosa in the gastric body and antrum. Biopsied. -On IV Protonix 40 mg daily Q 24 H -Management as per Dr. Porter Urinary tract infection -Urine routines positive for esterase, WBC, bacteria -follow up with urine cultures -On IV ciprofloxacin 400 mg Q 12 H for 7 days History of Crohn's disease S/p total colectomy Possible flare-up of Crohn's disease -Patient underwent total colectomy with ileostomy bag in right lower quadrant. -Patient is not using any medication for Crohn's disease -Advised to follow-up with outpatient management Hypothyroidism -TSH is in normal limits -Continue on home medication levothyroxine 75 mg p.o. daily Obstructive sleep apnea -Patient uses 2 L of oxygen@ nasal cannula sometimes -outpatient management Code status : Full code DVT prophylaxis: SCDs GI prophylaxis: IV Protonix Diet: NPO Disposition: Patient was diagnosed with adenocarcinoma of Mullerian origin. Repeated CT scan showed Small-bowel obstruction with probable transition point in the lower midline abdomen and Moderate abdominopelvic ascites. Awaiting for Dr. Thomas's recommendation. Jose Burr MD Internal Medicine Resident, PGY-1 Date of Service: Jun 07, 2025 Billing Provider: MYAH MCKEON MD, SUNIL KUMAR, RES Jun 07, 2025 13:58
--- NOTE | 2025-06-07 13:59 | PROGRESS NOTE ---
Progress Note ID Providers to CC ~ Progress Note Progress Note: path noted/needs residential program coordinator onc BALAJI BANGURA MD Jun 07, 2025 13:59
[2025-06-07] MEDS: K and/or MAG REPLACEMENT MC SCH (20:00)
[2025-06-08] VITALS (10 sets, daily range): BP systolic 98–111; BP diastolic 56–64; PULSE 92–107; RESP 16–22; TEMP 98.2–98.7; O2SAT 94–97
[2025-06-08 06:25] LABS: CREATININE 0.84 MG/DL (0.40-0.90); PHOSPHORUS 3.0 MG/DL (2.3-4.5); TOTAL CARBON DIOXIDE 25.2 MMOL/L (24-32); eCRCL 47 ML/MIN; eGFR 67 ML/MIN
--- NOTE | 2025-06-08 14:03 | PROGRESS NOTE- Residence ---
Progress Note - Resident Providers to CC Resident Creating Document: JOSE BURR RES ~ Antibiotic Timeout Antibiotic Ordered?: Yes Subjective The patient was seen and examined at bedside today. Patient again developed abdominal distention. She has been passing liquid stools. She denies abdominal pain, nausea, vomitings, shortness of breath. Objective Vital Signs Date Time Temp Pulse Resp B/P (MAP) Pulse Ox O2 Delivery O2 Flow Rate FiO2 06/08/25 10:00 98.5 102 16 103/61 (75) 96 Room Air 06/08/25 08:45 1.0 24 Result Diagram: 06/06/25 0410 06/08/25 0509 Awake , alert and oriented to time,place, person, cachectic, not in distress HEENT: Atraumatic, normocephalic, PEERLA, anicteric sclera ; pink conjunctiva Neck: Trachea midline. Supple, normal range of motion, no JVD Cardiac: S1, S2 heard,Regular rate and rhythm, no murmurs heard. Chest and Respiratory: Equal breath sounds bilaterally, no tachypnea, wheezing and ronchi are present.Chest wall is symmetric and without deformity. Abdomen: Scar is present center of abdomen with Ileostomy bag in right lower quadrant, Abdomen is soft, mild distended abdomen , no pain or tenderness, No guarding or rigidity, bowel sounds heard.. Garcia's sign negative., no hepatosplenomegaly MSK: Range of motion of all extremities are normal. There is no joint pain or joint swelling or joint erythema. There is no muscle pain or tenderness or swelling. Extremities: warm, well-perfused, No cyanosis, clubbing or edema, 2+ pulses felt Neurological: Speech is clear, alert, and oriented x 4. No sensory or motor deficits. Cranial nerves II-XII intact. 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 Moderate abdominopelvic ascites . -Ascitic fluid analysis showed high-protein count and SAAG - 0.1. -Peritoneal fluid analysis is positive for adenocarcinoma of Mullerian origin. -On IV Protonix 40 mg daily Q 24 H -IV metoclopramide 5 mg p.r.n. -Pain management with IV Dilaudid 0.5 mg q.4h -On IV ciprofloxacin 400 mg q.12h for 7 days -Treated with IV metronidazole 500 mg for 5 days - Planning to transfer the patient to [facility] with back up worker and oncologist in view of ovarian adenocarcinoma with peritoneal carcinomatosis. - continue treatment as per Dr. Thomas's recommendation Acute esophagitis and gastritis -EGD showed LA Grade B reflux esophagitis with no bleeding.Small hiatal hernia. Congested, erythematous, eroded and petechial mucosa in the gastric body and antrum. Biopsied. -On IV Protonix 40 mg daily Q 24 H -Management as per Dr. Porter Urinary tract infection -Urine routines positive for esterase, WBC, bacteria -follow up with urine cultures -On IV ciprofloxacin 400 mg Q 12 H for 7 days History of Crohn's disease S/p total colectomy Possible flare-up of Crohn's disease -Patient underwent total colectomy with ileostomy bag in right lower quadrant. -Patient is not using any medication for Crohn's disease -Advised to follow-up with outpatient management Hypothyroidism -TSH is in normal limits -Continue on home medication levothyroxine 75 mg p.o. 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 Planning to transfer the patient to [facility] with back up worker and oncologist in view of ovarian adenocarcinoma with peritoneal carcinomatosis. Jose Burr MD Internal Medicine Resident, PGY-1 Date of Service: Jun 08, 2025 Billing Provider: MYAH MCKEON MD, SUNIL KUMAR, RES Jun 08, 2025 14:03
[2025-06-09] VITALS (14 sets, daily range): BP systolic 103–158; BP diastolic 53–85; PULSE 84–142; RESP 16–32; TEMP 97.6–99.4; O2SAT 90–97
[2025-06-09] MEDS: albuterol 2.5 MG/3 ML nebule NEB PRN (00:19)
[2025-06-09] MEDS: guaiFENesin/DM 10ml UD oral syrup PO PRN (00:36)
[2025-06-09] MEDS: azithromycin/NS 500mg/250ml 250 ML IV ONE (01:02)
--- NOTE | 2025-06-09 02:27 | RADIOLOGY REPORT ---
CHEST RADIOGRAPH Indication: abdominal pain Technique: 1 view Comparison: DI CHEST,SINGLE VIEW on DOS: 06/01/25 ; CT abdomen/pelvis 06/07/2025 FINDINGS: Lines and Tubes: None Lungs/Pleura: Persistent small pleural effusions. Basilar hazy attenuation likely represents cristhian sive atelectasis. No pneumothorax. Cardiomediastinum: Normal size. Other: Unchanged osseous structures. IMPRESSION: 1. Small pleural effusions and basilar airspace disease as seen on recent CT, new/worsened from 8 day s prior chest radiograph.
--- NOTE | 2025-06-09 02:32 | RADIOLOGY REPORT ---
Exam: DI ABDOMEN,SINGLE VIEW(KUB) Indication: abdominal pain Comparison: DI ABDOMEN,SINGLE VIEW(KUB) on DOS: 06/03/25, DI ABDOMEN,SINGLE VIEW(KUB) on DOS: 02/12/25 Technique: 2 radiographic views of the abdomen. Findings: Nonobstructive bowel gas pattern. Several gas distended bowel loops in the mid to lower abdomen, less conspicuous than [address] Overlying mesh material and surgical clips. External urinary cath eter.. The lower chest is better assessed on concurrent chest radiograph. Osseous structures are unchanged. Impression: 1. Overall nonobstructive bowel-gas pattern with decreased caliber of distended bowel loops from [address] accounting for differences in modality.
[2025-06-09 06:23] LABS: CREATININE 0.94 MG/DL (0.40-0.90); PHOSPHORUS 3.6 MG/DL (2.3-4.5); TOTAL CARBON DIOXIDE 28.2 MMOL/L (24-32); eCRCL 42 ML/MIN; eGFR 59 ML/MIN
[2025-06-09 06:53] LABS: MEAN PLATELET VOLUME 8.6 FL (7.4-10.4); RED CELL DISTRIBUTION WIDTH 14.3 % (11.5-14.5)
[2025-06-09] MEDS: fluticasone nasal spray 16GM bottle NS SCH (09:27)
[2025-06-09] MEDS: potassium Cl 40MEQ/1/2NS 520ml 520 ML IV PRN (09:27)
[2025-06-09] MEDS ORDERED: normal saline 1000ml 1,000 ML IV SCH (10:50)
[2025-06-09] MEDS: normal saline 500ml IV soln 500 ML IV SCH (11:01)
--- NOTE | 2025-06-09 16:07 | DISCHARGE SUMMARY-Residence ---
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 Admission Diagnosis: Possible enteritis and possible small bowel obstruction Hospital Course DATE OF ADMISSION: 06/01/25 DATE OF TRANSFER: 06/09/25 Discharge Diagnosis\Comment: Partial small-bowel obstruction Recurrent malignant ascites Adenocarcinoma of the ovary with metastasis UTI Crohn's disease status post colectomy Hypothyroidism Acute esophagitis and gastritis Obstructive sleep apnea Operations\Procedures: Paracentesis Consultants: Dr. Brown (bobbin sorter) Dr. Warner (GI) Dr. March (surgeon) Complications: None Condition on DC: Stable for transfer Discharge Summary: A 70-year-old female patient with PMH of Crohn's disease s/p total colectomy and hypothyroidism presented to the ER with complaints of abdominal pain since last three months. Patient underwent CT scan imaging with IV contrast at [facility] indicating possible small-bowel obstruction and enteritis of infectious or inflammatory etiology. Patient was prescribed ciprofloxacin that the patient never took. We initially suspected flare-up of Crohn's disease and consulted GI who recommended management for possible small-bowel obstruction versus enteritis and ruled out Crohn's disease flare-up. Dr. March was consulted in view of possible small-bowel obstruction. Simultaneously, patient also had ascitic fluid that required to be tapped per Dr. Thomas's recommendations. The ascitic fluid was exudative raising a suspicion for carcinoma. Eventually, peritoneal fluid revealed adenocarcinoma by the pathologist. Per the surgeon, patient requires transfer for the management of adenocarcinoma of the ovary and small-bowel obstruction. Patient is being treated with NG tube and NPO while managing her chronic medical conditions and electrolyte abnormalities. Physical examination at discharge: General: Alert, awake, oriented, not in acute distress HEENT: PERRLA, no icterus, pallor, lymphadenopathy, carotid bruit Respiratory system: Bilateral vesicular breath sounds heard, no adventitious breath sounds CVS: S1-S2 heard, no murmurs/rubs/gallop GI: Generalized tenderness of the abdomen, fluids were positive, distention of the abdomen five sent, surgical scar present in the center of the abdomen, ileostomy bag present in the right side, Soft, no organomegaly, no guarding/rigidity, bowel sounds present Neuro: No focal neurological deficits present Extremities: No edema cyanosis clubbing/deformities Skin: Warm and dry Labs at discharge: WBC: 8.8, H/H: 12.9/38.7, platelet count: 333 Sodium: 134, potassium: 3.1, BUN: 14, creatinine: 0.94 Imaging: Chest x-ray: Small pleural effusions and basilar airspace disease as seen on recent CT, new/worsened from 8 days prior chest radiograph. Abdominal Xray: Overall nonobstructive bowel-gas pattern with decreased caliber of distended bowel loops from [address] accounting for differences in moda lity. Abdomen/pelvis CT: Small-bowel obstruction with probable transition point in the lower midline abdomen. Moderate abdominopelvic ascites. Cirrhotic liver. Moderate bilateral pleural effusions. 5. 1 cm anterolisthesis of L5 on S1 secondary to spondylolysis. Abdomen/pelvis CT (06/02):Large volume ascites ; relatively unchanged from prior imaging. Interval decrease in the distention of the small bowel loops with no significant distention noted on current image. Contrast passage into the ileostomy is noted. Significant wall thickening of the distal esophagus and distal stomach. Correlate for esophagitis and gastritis respectively. Retroperitoneal lymphadenopathy ; varicose veins prominence of the pelvic vasculatures. Small bilateral pleural effusions. Echo: Overall LVEF is about 60%. Chest x-ray (06/01): No acute cardiopulmonary disease. Patient is stable for transfer to [facility] for further management. Patient was not able to be transferred via [facility] in view of bad weather yesterday, transported today. Patient does not have any acute overnight events or clinical changes reportedly. *Problems/Diagnosis: (1) Small bowel obstruction Status: Acute (2) Adenocarcinoma (epithelial) of ovary (3) Peritoneal carcinomatosis Total Time Spent on D/C: > 30 Minutes Date of Service: Jun 10, 2025 Billing Provider: MYAH MCKEON MD, SIVA, RES Jun 09, 2025 13:35
[2025-06-09] MEDS: potassium Cl 20 mEq SR tablet PO PRN (19:30)
[2025-06-10 06:28] VITALS: BP 100/50; PULSE 98; RESP 12; TEMP 97.1; O2SAT 96
[2025-06-10 06:35] LABS: CREATININE 0.68 MG/DL (0.40-0.90); PHOSPHORUS 3.4 MG/DL (2.3-4.5); TOTAL CARBON DIOXIDE 29.9 MMOL/L (24-32); eCRCL 59 ML/MIN; eGFR 85 ML/MIN
[2025-06-10 07:30] VITALS: RESP 12; O2SAT 96
[2025-06-10 09:48] VITALS: PULSE 102; RESP 20; O2SAT 92
[2025-06-10 09:49] VITALS: PULSE 100; RESP 20
[2025-06-10 09:56] VITALS: BP 124/72
== END 2025-06-10 11:06 | disposition critical access hospital (66) | DRG 754 ==
LOC: ER 12:11 → ED HOLD 16:38 → SUR 3N 19:32
PROVIDERS: ADMIT Family Medicine; ATTEND Family Medicine
PROC: BW211ZZ Computerized Tomography (CT Scan) of Abdomen and Pelvis using Low Osmolar Contrast (ICD-10-PCS; 2025-06-02)
PROC: 0D9670Z Drainage of Stomach with Drainage Device, Via Natural or Artificial Opening (ICD-10-PCS; principal; 2025-06-03)
PROC: 0W9G3ZZ Drainage of Peritoneal Cavity, Percutaneous Approach (ICD-10-PCS; 2025-06-04)
PROC: 0DB68ZX Excision of Stomach, Via Natural or Artificial Opening Endoscopic, Diagnostic (ICD-10-PCS; 2025-06-05)
PROC: 0DB78ZX Excision of Stomach, Pylorus, Via Natural or Artificial Opening Endoscopic, Diagnostic (ICD-10-PCS; 2025-06-05)
PROC: BW211ZZ Computerized Tomography (CT Scan) of Abdomen and Pelvis using Low Osmolar Contrast (ICD-10-PCS; 2025-06-07)
PROC: 02HV33Z Insertion of Infusion Device into Superior Vena Cava, Percutaneous Approach (ICD-10-PCS; 2025-06-10)
PROC: 4A02X4A Measurement of Cardiac Electrical Activity, Guidance, External Approach (ICD-10-PCS; 2025-06-10)
DX: C56.9 Malignant neoplasm of unspecified ovary (principal); E43 Unspecified severe protein-calorie malnutrition; K56.690 Other partial intestinal obstruction; C78.6 Secondary malignant neoplasm of retroperitoneum and peritoneum; N39.0 Urinary tract infection, site not specified; Z68.1 Body mass index [BMI] 19.9 or less, adult; R18.0 Malignant ascites; K44.9 Diaphragmatic hernia without obstruction or gangrene; K21.00 Gastro-esophageal reflux disease with esophagitis, without bleeding; K25.9 Gastric ulcer, unspecified as acute or chronic, without hemorrhage or perforation; J44.9 Chronic obstructive pulmonary disease, unspecified; E03.9 Hypothyroidism, unspecified; K29.60 Other gastritis without bleeding; Z88.1 Allergy status to other antibiotic agents; Z91.040 Latex allergy status; Z98.84 Bariatric surgery status; Z93.2 Ileostomy status; Z90.49 Acquired absence of other specified parts of digestive tract
CPT/HCPCS: 36415; 36569; 43239; 49083; 71045; 74018; 74176; 74177; 76942; 80048; 80053; 80061; 80076; 81001; 82042; 82945; 82948; 83036; 83615; 83690; 83735; 83880; 84100; 84134; 84157; 84443; 84478; 84484; 85025; 85610; 85651; 85730; 86140; 87070; 87075; 87081; 88305; 88342; 89051; 93005; 93306; 94640; 94760; 97116; 97162; 99285; A4615; A4620; A6213; A6258; C1729; C1751; G0378; J0456; J0744; J1171; J1938; J2060; J2270; J2405; J2470; J2704; J2765; J2919; J3475; J3480; J3490; J7030; J7040; J7060; J7120; Q9963; Q9967